=== PATIENT | male | born 1990 | race Caucasian/White ===

== ENCOUNTER 2020-03-10 10:02 | Emergency (ER) | payer SELFPAY ==
--- NOTE | ~2020-03-10 | CT_ITS ---
EXAMINATION: CT brain wo con DATE: 03/10/2020 11:20 INDICATION: Head injury. Loss of consciousness. TECHNIQUE: Computed tomography (CT) of the head was performed without intravenous contrast. The mA wa s adjusted according to patient size. Iterative reconstruction technique was employed. Exam dose: 60 5.33 mGy-cm total exam DLP. COMPARISON: None FINDINGS: No intracranial mass lesion or hemorrhage or cerebrovascular accident is evident. No midlin e shift or mass effect. Normal ventricular size. No subdural or epidural hematoma. No orbital mass lesion is detected. No fracture or bone destruction of the cranial vault. The mastoid air cells and included paranasal si nuses are normally developed and aerated. IMPRESSION: Negative Reviewed, dictated and finalized at [facility] Reviewed, dictated and finalized at [facility] IMPRESSION: Negative
[2020-03-10 10:02] VITALS: BP 122/82; PULSE 74; RESP 18; TEMP 37.1; O2SAT 97
--- NOTE | 2020-03-10 10:49 | ED.HEATRA ---
HPI - Head Injury General Chief complaint: Head Injury <MASOOD Duval Last Filed: 03/10/20 11:36> Stated complaint: HI <MASOOD Duval Last Filed: 03/10/20 11:36> Time Seen by Provider: 03/10/20 10:05 <MASOOD Duval Last Filed: 03/10/20 11:36> Source: patient <MASOOD Duval Last Filed: 03/10/20 11:36> Mode of arrival: EMS <MASOOD Duval Last Filed: 03/10/20 11:36> Limitations: other (patient does not remember incident well) <MASOOD Duval Last Filed: 03/10/20 11:36> History of Present Illness HPI Narrative: This is a 29 year old male that presents to the ER for head injury just prior to arrival. 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 Reports he did briefly lose consciousness. Report initially he had some blurry vision and ringing in his ears. Now reports a mild headache. Denies vomiting, weakness, or numbness. <MASOOD Duval Last Filed: 03/10/20 11:36> Related Data Home medications: Home Medications Medication Instructions Recorded Confirmed paroxetine HCl mg PO 03/10/20 <MASOOD Duval Last Filed: 03/10/20 11:36> Allergies/Adverse reactions: Allergies Allergy/AdvReac Type Severity Reaction Status Date / Time No Known Allergies Allergy Verified 03/10/20 10:46 <MASOOD Duval Last Filed: 03/10/20 11:36> Review of Systems Review of Systems: Narrative: CONSTITUTIONAL: Denies fever EYES: Reports visual changes GASTROINTESTINAL: Denies vomiting MUSCULOSKELETAL: Denies back pain, joint pain, or myalgia. NEUROLOGIC: Reports headache. Denies numbness, or weakness. PSYCHIATRIC: Denies anxiety or depression. <MASOOD Duval Last Filed: 03/10/20 11:36> All systems reviewed & are unremarkable except as noted in HPI and below <Merced Case PA-C - Last Filed: 03/10/20 11:36> PMFSH Past Medical History Medical History: Medical History (Updated 03/10/20 @ 11:31 by Merced Case PA-C) History of anxiety History of depression <Merced Case PA-C - Last Filed: 03/10/20 11:36> Exam Narrative: Exam Narrative: GENERAL: Well-appearing, well-nourished, and in no acute distress. HEAD: Normocephalic, atraumatic. EYES: PERRLA and EOMI. ENT: Nares clear, no rhinorrhea or epistaxis. Mucous membranes moist. Oropharynx without tonsillar hypertrophy exudate or other lesions. Bilateral TMs pearly lance non-bulging NECK: Supple. No adenopathy or masses. No midline spinal tenderness. Normal range of motion in the neck without pain CHEST: Clear to auscultation. No respiratory distress. No wheezes rales or rhonchi HEART: Regular rate and rhythm. No murmur heard. Normal peripheral pulses. ABDOMEN: Soft, nontender, nondistended, normal active bowel sounds. EXTREMITIES: Normal range of motion. No edema or obvious deformity. Strength equal in bilateral upper and lower extremities (5/5) SKIN: Warm, dry, no rash. NEURO: No focal deficits. Alert and oriented x3. Cranial nerves II through XII grossly intact. Normal [id number] PSYCH: Normal mood and affect <Merced Case PA-C - Last Filed: 03/10/20 11:36> Course Vital Signs Vital signs: Vital Signs Temperature 37.1 C 03/10/20 10:02 Pulse Rate 74 03/10/20 10:02 Respiratory Rate 18 03/10/20 10:02 Blood Pressure 122/82 03/10/20 10:02 Pulse Oximetry 97 03/10/20 10:02 Temperature 37.1 C 03/10/20 10:02 Pulse Rate 65 03/10/20 11:29 Respiratory Rate 16 03/10/20 11:29 Blood Pressure 134/90 03/10/20 11:29 Pulse Oximetry 98 03/10/20 11:29 <Merced Case PA-C - Last Filed: 03/10/20 11:36> Vital Signs Temperature 37.1 C 03/10/20 10:02 Pulse Rate 74 03/10/20 10:02 Respiratory Rate 18 03/10/20 10:02 Blood Pressure 122/82 03/10/20 10:02 Pulse Oximetry 97 03/10/20 10:02 Temperature 37.1 C 100
[2020-03-10 11:29] VITALS: BP 134/90; PULSE 65; RESP 16; O2SAT 98
--- NOTE | 2020-03-10 11:32 | PC.NURSE ---
Report to FATUMA Vasquez, to continue care.
== END 2020-03-10 12:22 | disposition home or self-care (01) ==
PROVIDERS: Emergency Provider Emergency Medicine
DX: S06.9X1A Unspecified intracranial injury with loss of consciousness of 30 minutes or less, initial encounter (principal); F41.9 Anxiety disorder, unspecified; F32.9 Major depressive disorder, single episode, unspecified
CPT/HCPCS: 70450; 99284; J0131

== ENCOUNTER 2020-05-12 16:25 | Outpatient (CLI) | payer BC, SELFPAY ==
[2020-05-12 17:04] LABS: SARS-CoV-2 Ag Negative (Negative)
== END 2020-05-12 16:26 | disposition home or self-care (01) ==
LOC: CHSLAB 16:30
PROVIDERS: PCP Internal Medicine; Visit Provider Internal Medicine
DX: Z20.828 Contact with and (suspected) exposure to other viral communicable diseases (principal)
CPT/HCPCS: 87426

== ENCOUNTER 2020-09-01 12:03 | Outpatient (CLI) | payer BC, SELFPAY ==
[2020-09-01 12:32] LABS: Basophils Absolute Auto 0.08 K/mm3 (0.00-0.10); Eosinophils Absolute Auto 0.23 K/mm3 (0.02-0.50); Eosinophils Percent Auto 2.8 % (1.0-6.0); Hematocrit 46.8 % (40.0-54.0); Hemoglobin 15.7 g/dL (14.0-18.0); Immature Granulocyte Absolute 0.09 K/mm3 (0.00-0.00); Immature Granulocyte Percent A 1.1 % (0.0-0.0); Lymphocytes Percent Auto 25.8 % (18.0-42.0); Mean Corpuscular HGB Conc 33.5 g/dL (32.0-36.0); Mean Corpuscular Hemoglobin 29.3 pg (27.0-31.0); Mean Corpuscular Volume 87.5 fL (78.0-102.0); Mean Platelet Volume 9.8 fl (8.7-11.0); Monocytes Absolute Auto 0.63 K/mm3 (0.10-0.90); Monocytes Percent Auto 7.7 % (2.0-11.0); Neutrophils Percent Auto 61.6 % (50.0-70.0); Platelet Count Result 237 K/mm3 (150-420); Red Blood Count 5.35 M/mm3 (4.70-6.10); Red Cell Distribution Width 12.6 % (11.6-14.4); White Blood Count 8.2 K/mm3 (4.8-10.8)
[2020-09-01 12:48] LABS: Alanine Aminotransferase 48 U/L (16-63); Alkaline Phosphatase 71 U/L (46-116); Amylase 68 U/L (25-115); Anion Gap 8 mmol/L (8-16); Aspartate Amino Transferase 18 U/L (15-37); Bilirubin,Total 0.4 mg/dL (0.00-1.00); Blood Urea Nitrogen 14 mg/dL (7-18); Calcium 8.8 mg/dL (8.5-10.1); Carbon Dioxide 28 mmol/L (21-32); Chloride 102 mmol/L (98-108); Estimated Glomerular Filt Rate > 60; Glucose 88 mg/dL (70-99); Lipase 242 U/L (73-393); Osmolality Calculated 285 mOsm/kg (285-295); Sodium 138 mmol/L (136-145); Total Protein 7.4 g/dL (6.4-8.2)
[2020-09-01 13:13] LABS: SARS-CoV-2 RNA PCR Negative (Negative)
[2020-09-01 13:23] LABS: Influenza A QL RT-PCR Negative (Negative); Influenza B QL RT-PCR Negative (Negative)
== END 2020-09-01 12:04 | disposition home or self-care (01) ==
LOC: CHSLAB 12:07
PROVIDERS: PCP Nurse Practitioner Family; Visit Provider Nurse Practitioner Family
DX: R11.2 Nausea with vomiting, unspecified (principal)
CPT/HCPCS: 80053; 82150; 83690; 85025; 87081; 87502; 87880; C9803; U0003; U0005

== ENCOUNTER 2021-01-09 14:49 | Emergency (ER) | payer SELFPAY ==
[2021-01-09 15:35] VITALS: BP 111/79; PULSE 77; RESP 16; TEMP 37; O2SAT 98
[2021-01-09 16:29] LABS: Add Urine Microscopic? NO; Appearance Urine Clear (Clear); Bilirubin Urine Negative (Negative); Blood Urine Negative (Negative); Color Urine Yellow (Yellow); Glucose Urine UA Negative (Negative); Ketones Urine Negative (Negative); Leukocyte Esterase Ur Negative (Negative); Nitrate Urine Negative (Negative); Protein Urine Negative (Negative); Specific Grav Ur >= 1.030 (1.010-1.020); Urobilinogen Urine 0.2 mg/dL (0.2-1.0); pH Urine 5.5 (5.0-8.0)
--- NOTE | 2021-01-09 16:43 | PC.NURSE ---
REPORT PROVIDED TO ONCOMING RN, FABY Levine
[2021-01-09 16:53] VITALS: BP 120/72; PULSE 70; RESP 17; O2SAT 97
--- NOTE | 2021-01-09 17:04 | ED.MALEGU ---
HPI - Male Genitourinary General Chief complaint: Urogenital-Male Stated complaint: STD tested Time Seen by Provider: 01/09/21 15:37 Source: patient and RN notes reviewed Mode of arrival: ambulatory Limitations: no limitations History of Present Illness Complaint: penile discharge and possible STD exposure Onset (ago): day(s) (2) Duration: constant Location: penis Severity: mild Quality: other (no acute pain) Relieving factors: none Exacerbating factors: none Context: known STD exposure Associated symptoms: Reports denies other symptoms Related Data Sexually active: Yes Allergies Allergy/AdvReac Type Severity Reaction Status Date / Time No Known Allergies Allergy Verified 03/10/20 10:46 Review of Systems Review of Systems: All systems reviewed & are unremarkable except as noted in HPI and below Constitutional: Constitutional: Reports as per HPI and Reports no additional constitutional complaints Eyes: Eyes: Reports as per HPI and Reports no additional eye complaints ENT: Reports system reviewed and no additional complaints, except as documented and Reports as per HPI Cardiovascular: Cardiovascular: Reports as per HPI and Reports no additional cardiovascular complaints Respiratory: Respiratory: Reports as per HPI and Reports no additional respiratory complaints Gastrointestinal: Gastrointestinal: Reports as per HPI and Reports no additional gastrointestinal complaints Genitourinary: Genitourinary: Reports no additional male genitourinary complaints and Reports as per HPI Musculoskeletal: Musculoskeletal: Reports no additional musculoskeletal complaints and Reports as per HPI Integumentary/Breasts: Skin/Breast: Reports system reviewed and no additional complaints, except as docu and Reports as per HPI Neurologic: Reports system reviewed and no additional complaints, except as documented and Reports as per HPI Psychiatric: Psychiatric: Reports no additional psychiatric complaints and Reports as per HPI Endocrine: Endocrine: Reports no additional endocrine complaints and Reports as per HPI Hematologic/Lymphatic: Hematologic/Lymphatic: Reports no additional hematologic/lymphatic complaints and Reports as per HPI Allergic/Immunologic: Allergic/Immunologic: Reports no additional allergic/immunologic complaints and Reports as per HPI PMF Past Medical History Medical History History of anxiety History of depression Exam Const: General: healthy appearing, no acute distress and alert Orientation/consciousness: oriented to person, oriented to place and oriented to time Limitations: no limitations HENMT: Head: normal to inspection Ears: TM's normal bilaterally General nose exam: Normal external nose present and Normal nares present Mouth: Yes lip normal and Yes moist mucous membranes Teeth and gingiva: dentition normal Throat: posterior oropharynx normal Eyes: Conjunctivae: conjunctivae normal Pupils: Equal, round and reactive pupils present EOM: EOMs intact bilaterally Neck: Neck: normal visual inspection and no lymphadenopathy Chest: Chest palpation & inspection: normal inspection of the chest Resp: Effort & Inspection: normal respiratory effort Auscultation: clear to auscultation bilaterally Cardio: Rate: regular rate Rhythm: regular rhythm GI: GI Palp: Yes Soft to palpation Percussion: Yes normal to percussion Auscultation: normal bowel sounds : General: Yes bladder normal to palpation and Yes no CVA tenderness Male General Exam: Yes normal external exam Testes: Testes normal Back/Spine/Pelvis: Back: no CVA tenderness Skin: General skin exam: normal color Rashes: no rashes Neuro: General: patient oriented x3, moves all extremities and no focal motor deficits Cranial nerves: Yes CN's II-XII intact bilaterally and Yes Nystagmus not present Extrem: General: normal to inspection and no pedal edema Psych: Appearance: grossly no
[2021-01-09 17:10] VITALS: BP 120/88; PULSE 72; RESP 16; TEMP 36.6; O2SAT 98
[2021-01-09 17:13] LABS: HIV 1 P24 AG Negative (Negative); HIV 1/2 AB Negative (Negative)
[2021-01-11 22:31] LABS: Treponema pallidum Ab FTA ABS Nonreactive (Nonreactive)
[2021-01-12 10:51] LABS: RPR Screen Non-Reactive (Non-Reactive)
== END 2021-01-09 17:12 | disposition home or self-care (01) ==
PROVIDERS: Emergency Provider Emergency Medicine; PCP Nurse Practitioner Family
DX: N34.2 Other urethritis (principal)
CPT/HCPCS: 36415; 81003; 86592; 86703; 86780; 87491; 87591; 99283

== ENCOUNTER 2022-04-05 18:25 | Emergency (ER) | payer SELFPAY ==
[2022-04-05 18:38] VITALS: BP 120/74; PULSE 65; RESP 20; TEMP 36.2; O2SAT 100
--- NOTE | 2022-04-05 19:30 | ED.URI ---
HPI - URI/Sore Throat General Chief Complaint: Upper Respiratory Infection Stated Complaint: cough with chest pain Time Seen by Provider: 04/05/22 19:30 Source: patient, RN notes reviewed and old records reviewed Mode of arrival: ambulatory Limitations: no limitations History of Present Illness HPI Narrative: 31-year-old male presents to [facility] with complaints of dry cough and sore throat for the past 3-4 days. Patient reports that cough is harsh and he was unable to sleep last night due to cough. He reports no fevers, chills or sweats, admits to some nasal congestion and drainage. Patient denies any shortness of breath, no acute headache pain or any body aches, states has had Covid vaccination. Patient states that he has taken some ORC cough syrup without improvement. MD elicited complaint: fever and cough Onset (ago): day(s) (3-4 days) Pain scale (0-10): 3 Treatments prior to arrival: other (cough syrup) Related Data Allergies Allergy/AdvReac Type Severity Reaction Status Date / Time No Known Allergies Allergy Verified 04/05/22 20:06 Review of Systems Review of Systems: CONSTITUTIONAL: Denies malaise, chills, sweats, or fever. EYES: Denies visual changes, redness, or discharge. ENT: Reports rhinorrhea, congestion, sinus pain, no otalgia positive sore throat. CARDIOVASCULAR: Denies chest pain, palpitations, or edema. RESPIRATORY: Reports cough.? Denies dyspnea. GASTROINTESTINAL: Denies abdominal pain, nausea, vomiting, diarrhea SKIN: Denies rash or itching. MUSCULOSKELETAL: Denies myalgia. NEUROLOGIC: Denies headache. All systems reviewed & are unremarkable except as noted in HPI and below PMFSH Past Medical History Medical History (Updated 04/06/22 @ 00:00 by Background Daemon) History of anxiety History of depression Surgical History Surgical History (Updated 04/13/22 @ 00:03 by Tara Whaley NP) History of surgery on arm ulnar nerve release left arm Social History Social History (Updated 04/12/22 @ 23:55 by Tara Whaley NP) Smoking status: Never smoker Alcohol intake: current Alcohol use details: social Substance use type: does not use Living arrangements: with family Gender identity (if verbalized by the patient): Male Comments At time of signature, agree with nursing past medical, surgical, social and family history. There is no relevant family history pertinent to the presenting complaint Exam Narrative: GENERAL: Well-appearing, well-nourished, and in no acute distress. HEAD: Normocephalic EYES: PERRLA, conjunctivae clear ENT: Nares clear, turbinates edematous and erythematous, clear discharge. Mucous membranes moist. TM pearly lance with dull light reflex bilaterally; no tragal tenderness. Oropharynx erythematous without lesions. Tonsils enlarged and with white exudate, no drooling, no hoarseness, no trismus, uvula midline. NECK: Supple. lymphadenopathy CHEST: Clear to auscultation, breath sounds equal. No wheezing, rhonchi, rales, or stridor. No respiratory distress, speaks in full sentences.harsh cough, SAO2 100% on room air HEART: Regular rate and rhythm. No murmur heard. SKIN: Warm, dry, no rash. NEURO: Alert and oriented x3. PSYCH: Normal mood and affect Course Course Emergency Course: Patient is aware of diagnosis, understands and agrees to treatment plan.? Anticipatory guidance given.? Patient agrees to follow-up as directed and is aware of reasons to seek care at the emergency department. Portions of this record may have been created with voice recognition software Level of Care: Express Care Visit Vital Signs Vital signs: Vital Signs Temperature 36.2 C L 04/05/22 18:38 Pulse Rate 65 04/05/22 18:38 Respiratory Rate 20 04/05/22 18:38 Blood Pressure 120/74 04/05/22 18:38 Pulse Oximetry 100 04/05/22 18:38 Oxygen Delivery Room Air 04/05/22 18:38 Temperature 36.2 C L 04/05/22 18:38 Pulse Rate 65
== END 2022-04-05 20:01 | disposition home or self-care (01) ==
PROVIDERS: Emergency Provider Registered Nurse; PCP Internal Medicine
DX: B00.2 Herpesviral gingivostomatitis and pharyngotonsillitis (principal)
CPT/HCPCS: 87081; 87804; 87880; 99213; G0463

== ENCOUNTER 2022-05-14 09:29 | Emergency (ER) | payer SELFPAY ==
--- NOTE | 2022-05-14 09:32 | ED.URI ---
HPI - URI/Sore Throat General Stated Complaint: Flu symptoms Time Seen by Provider: 05/14/22 10:11 Source: patient and RN notes reviewed Mode of arrival: ambulatory Limitations: no limitations History of Present Illness HPI Narrative: 31-year-old male presents concern for 2 week history flu-like symptoms. Reports symptoms have resolved, he has not had a fever in the last 3 days. Reports his only remaining symptom is lingering mild cough. Reports he is ready to go back to work after time off due to his illness but needs a work note. MD elicited complaint: cough Related Data Home Medications Medication Instructions Recorded Confirmed No Home Medications 05/14/22 05/14/22 Allergies Allergy/AdvReac Type Severity Reaction Status Date / Time No Known Allergies Allergy Verified 05/14/22 10:03 Review of Systems Review of Systems: CONSTITUTIONAL: Denies malaise, chills, sweats, or fever. EYES: Denies visual changes, redness, or discharge. ENT: Denies rhinorrhea, congestion, sinus pain, otalgia and sore throat. CARDIOVASCULAR: Denies chest pain, palpitations, or edema. RESPIRATORY: Reports mild cough. Denies dyspnea. GASTROINTESTINAL: Denies abdominal pain, nausea, vomiting, diarrhea SKIN: Denies rash or itching. MUSCULOSKELETAL: Denies myalgia. NEUROLOGIC: Denies headache. All systems reviewed & are unremarkable except as noted in HPI and below PMFSH Past Medical History Medical History (Updated 05/14/22 @ 10:16 by Ana Yanes NP) History of anxiety History of depression Surgical History Surgical History (Updated 04/13/22 @ 00:03 by Tara Whaley NP) History of surgery on arm ulnar nerve release left arm Social History Social History (Updated 04/12/22 @ 23:55 by Tara Whaley NP) Smoking status: Never smoker Alcohol intake: current Alcohol use details: social Substance use type: does not use Gender identity (if verbalized by the patient): Male Comments At time of signature, agree with nursing past medical, surgical, social and family history. There is no relevant family history pertinent to the presenting complaint Exam Narrative: GENERAL: Well-appearing, well-nourished, and in no acute distress. HEAD: Normocephalic EYES: PERRLA, conjunctivae clear ENT: Nares clear, turbinates edematous and erythematous, clear discharge. Mucous membranes moist. TM pearly lance with sharp light reflex bilaterally; no tragal tenderness. Oropharynx not erythematous without lesions. Tonsils not enlarged and without exudate, no drooling, no hoarseness, no trismus, uvula midline. NECK: Supple. No lymphadenopathy CHEST: Clear to auscultation, breath sounds equal. No wheezing, rhonchi, rales, or stridor. No respiratory distress, speaks in full sentences. HEART: Regular rate and rhythm. No murmur heard. SKIN: Warm, dry, no rash. NEURO: Alert and oriented x3. PSYCH: Normal mood and affect Course Course Emergency Course: Patient is aware of diagnosis, understands and agrees to treatment plan. Anticipatory guidance given. Patient agrees to follow-up as directed and is aware of reasons to seek care at the emergency department. Portions of this record may have been created with voice recognition software Level of Care: Express Care Visit Vital Signs Vital signs: Reviewed. MDM - URI/Sore Throat MDM Narrative Medical decision making narrative: Differential diagnosis considered: Tillman virus, strep pharyngitis, allergic rhinitis, upper respiratory tract infection, sinusitis, rhinosinusitis, nasopharyngitis. viral pharyngitis, otitis media, otitis externa, pneumonia, bronchitis, viral cough syndrome, viral syndrome, and influenza. Exam findings show no acute concerns or changes; patient is non-toxic appearing and is in no distress. Patient is appropriate for outpatient treatment and follow-up. Lab Data Attestation: I reviewed the patient's lab results. Critical Care Time Critical Care Time Critic
[2022-05-14 09:37] VITALS: BP 121/69; PULSE 80; RESP 14; TEMP 37; O2SAT 100
== END 2022-05-14 10:19 | disposition home or self-care (01) ==
PROVIDERS: Emergency Provider Nurse Practitioner; PCP Internal Medicine
DX: B34.9 Viral infection, unspecified (principal)
CPT/HCPCS: 99211; G0463

== ENCOUNTER 2022-05-20 13:58 | Emergency (ER) | payer SELFPAY | END 2022-05-20 16:02 | disposition left against medical advice (07) | LOC: EXPBETH 14:00 | PROVIDERS: Emergency Provider Registered Nurse; PCP Internal Medicine | DX: Z53.21 Procedure and treatment not carried out due to patient leaving prior to being seen by health care provider (principal) | CPT/HCPCS: 99199 ==

== ENCOUNTER 2022-05-20 19:25 | Emergency (ER) | payer SELFPAY ==
[2022-05-20 19:52] VITALS: BP 121/75; PULSE 79; RESP 20; TEMP 37.4; O2SAT 100
--- NOTE | 2022-05-20 20:31 | ED.NAVMDI ---
HPI - Nausea/Vomiting/Diarrhea General Chief complaint: Nausea/Vomiting/Diarrhea Stated complaint: Vomiting/Fever Time Seen by Provider: 05/20/22 20:30 Source: patient, RN notes reviewed and old records reviewed Mode of arrival: ambulatory Limitations: no limitations History of Present Illness HPI Narrative: 31 year old male who presents to [facility] care with complaints of lingering cough, nausea and vomiting and fever Tuesday was sent home from work.Patient reports that he had the flu about 2 weeks ago and cough has lingered with sinus congestion decreased with some low grade fevers. Patient has taken DayQuil and NyQuil and also Ibuprofen MD elicited complaint: nausea, vomiting and other (cough ) Treatment prior to arrival: NSAIDs and other (DayQul and NyQuil) Related Data Allergies Allergy/AdvReac Type Severity Reaction Status Date / Time No Known Allergies Allergy Verified 05/20/22 19:55 Review of Systems Review of Systems: CONSTITUTIONAL: Reports no malaise, chills, sweats, positive for low grade fever. EYES: Denies visual changes, redness, or discharge. ENT: Reports rhinorrhea, congestion, denies sinus pain, otalgia and sore throat. CARDIOVASCULAR: Denies chest pain, palpitations, or edema. RESPIRATORY: Reports lingering cough.? Denies dyspnea. GASTROINTESTINAL: Denies abdominal pain, positive for some nausea, vomiting, denies diarrhea SKIN: Denies rash or itching. MUSCULOSKELETAL: Denies myalgia. NEUROLOGIC: Denies headache. All systems reviewed & are unremarkable except as noted in HPI and below PMFSH Past Medical History Medical History (Updated 05/21/22 @ 00:00 by Kathy Swift) History of anxiety History of depression Surgical History Surgical History (Updated 04/13/22 @ 00:03 by Tara Whaley NP) History of surgery on arm ulnar nerve release left arm Social History Social History (Updated 04/12/22 @ 23:55 by Tara Whaley NP) Smoking status: Never smoker Alcohol intake: current Alcohol use details: social Substance use type: does not use Gender identity (if verbalized by the patient): Male Comments At time of signature, agree with nursing past medical, surgical, social and family history. There is no relevant family history pertinent to the presenting complaint Exam Narrative: GENERAL: Well-appearing, well-nourished, and in no acute distress. HEAD: Normocephalic EYES: PERRLA, conjunctivae clear ENT: Nares clear, turbinates edematous and erythematous, clear discharge. Mucous membranes moist. TM pearly lance with dull light reflex bilaterally; no tragal tenderness. Oropharynx erythematous without lesions. Tonsils not enlarged and without exudate, no drooling, no hoarseness, no trismus, uvula midline.post nasal drainage. NECK: Supple. No lymphadenopathy CHEST: Clear to auscultation, breath sounds equal. No wheezing, rhonchi, rales, or stridor. No respiratory distress, speaks in full sentences.cough SAO2 100% on room air HEART: Regular rate and rhythm. No murmur heard. SKIN: Warm, dry, no rash. NEURO: Alert and oriented x3. PSYCH: Normal mood and affect Course Course Emergency Course: Patient is aware of diagnosis, understands and agrees to treatment plan.? Anticipatory guidance given.? Patient agrees to follow-up as directed and is aware of reasons to seek care at the emergency department. Portions of this record may have been created with voice recognition software Level of Care: Express Care Visit Vital Signs Vital signs: Vital Signs Temperature 37.4 C 05/20/22 19:52 Pulse Rate 79 05/20/22 19:52 Respiratory Rate 20 05/20/22 19:52 Blood Pressure 121/75 05/20/22 19:52 Pulse Oximetry 100 05/20/22 19:52 Oxygen Delivery Room Air 05/20/22 19:52 Temperature 37.4 C 05/20/22 19:52 Pulse Rate 79 05/20/22 19:52 Respiratory Rate 20 05/20/22 19:52 Blood Pressure 121/75 05/20/22 19:52 Pulse Oximetry 100 12
--- NOTE | 2022-05-20 20:41 | ED_ITS ---
HPI - General Adult General Chief complaint: Nausea/Vomiting/Diarrhea Stated complaint: Vomiting/Fever Related Data Home Medications Medication Instructions Recorded Confirmed No Home Medications 05/14/22 05/20/22 Allergies Allergy/AdvReac Type Severity Reaction Status Date / Time No Known Allergies Allergy Verified 05/20/22 19:55 [facility] Past Medical History Medical History (Updated 05/20/22 @ 20:48 by Tara Whaley NP) History of anxiety History of depression Surgical History Surgical History (Updated 04/13/22 @ 00:03 by Tara Whaley NP) History of surgery on arm ulnar nerve release left arm Social History Social History (Updated 04/12/22 @ 23:55 by Tara Whaley NP) Smoking status: Never smoker Alcohol intake: current Alcohol use details: social Substance use type: does not use Gender identity (if verbalized by the patient): Male Course Vital Signs Vital signs: Vital Signs Temperature 37.4 C 05/20/22 19:52 Pulse Rate 79 05/20/22 19:52 Respiratory Rate 20 05/20/22 19:52 Blood Pressure 121/75 05/20/22 19:52 Pulse Oximetry 100 05/20/22 19:52 Oxygen Delivery Room Air 05/20/22 19:52 Temperature 37.4 C 05/20/22 19:52 Pulse Rate 79 05/20/22 19:52 Respiratory Rate 20 05/20/22 19:52 Blood Pressure 121/75 05/20/22 19:52 Pulse Oximetry 100 05/20/22 19:52 Oxygen Delivery Room Air 05/20/22 19:52 Medical Decision Making Vital Signs Vital Signs: Vital Signs Temperature 37.4 C 05/20/22 19:52 Pulse Rate 79 05/20/22 19:52 Respiratory Rate 20 05/20/22 19:52 Blood Pressure 121/75 05/20/22 19:52 Pulse Oximetry 100 05/20/22 19:52 Oxygen Delivery Room Air 05/20/22 19:52 Temperature 37.4 C 05/20/22 19:52 Pulse Rate 79 05/20/22 19:52 Respiratory Rate 20 05/20/22 19:52 Blood Pressure 121/75 05/20/22 19:52 Pulse Oximetry 100 05/20/22 19:52 Oxygen Delivery Room Air 05/20/22 19:52 Discharge Plan Discharge Clinical Impression: Upper respiratory infection with cough and congestion Prescriptions: No Action No Home Medications Follow-up/Referrals: PHYSICIAN,GLOBAL [employer]AF[employer]Y OFFICER [Primary Care Provider] -
== END 2022-05-20 20:59 | disposition home or self-care (01) ==
PROVIDERS: Emergency Provider Registered Nurse
DX: J06.9 Acute upper respiratory infection, unspecified (principal); R05.9 Cough, unspecified; R11.0 Nausea
CPT/HCPCS: 99213; G0463

== ENCOUNTER 2022-12-27 18:31 | Emergency (ER) | payer OTHER, SELFPAY ==
[2022-12-27 18:40] VITALS: BP 123/62; PULSE 82; RESP 20; TEMP 36.8; O2SAT 100
--- NOTE | 2022-12-27 18:47 | ED.LOWEXIN ---
HPI - Extremity Injury (Lower) General Chief Complaint: Extremity Injury, Lower Stated Complaint: Left Ankle Injury History of Present Illness HPI Narrative: 32-year-old male presents to the [facility] with his significant other and crutches complaining of a left ankle injury. 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 Patient denies any loss of consciousness or hitting his head. Patient is complaining of left ankle pain and came in for further evaluation. Patient reports some numbness and tingling to his left foot. Patient is able to wiggle his toes and does feel pressure when palpating his toes distal to the injury. Patient's left foot is warm with capillary refill less than 3 seconds. Patient states most of his pain is in the left dorsal foot, anterior, lateral, and medial side of his left ankle. Patient states the pain is nonradiating. Patient took 600 mg ibuprofen prior to arrival. Related Data Home Medications Medication Instructions Recorded Confirmed escitalopram oxalate 10 mg tablet 10 mg PO DAILY 12/27/22 12/27/22 (Lexapro) Allergies Allergy/AdvReac Type Severity Reaction Status Date / Time No Known Allergies Allergy Verified 12/27/22 18:53 Review of Systems Review of Systems: CONSTITUTIONAL: Denies fever, chills, or sweats. EYES: Denies visual changes, redness, or discharge. ENT: Denies otalgia and sore throat CARDIOVASCULAR: Denies chest pain, palpitations, or edema. RESPIRATORY: Denies cough or dyspnea. GASTROINTESTINAL: Denies abdominal pain, nausea, vomiting, or diarrhea. GENITOURINARY: Denies dysuria or hematuria. SKIN: Denies rash or itching. MUSCULOSKELETAL: Denies back pain. Reports left ankle injury. NEUROLOGIC: Denies headache, numbness, or weakness. Pertinent positives per HPI. [facility] Past Medical History Medical History (Updated 12/27/22 @ 19:01 by Siri Gottlieb APRN) History of anxiety History of depression Surgical History Surgical History (Updated 04/13/22 @ 00:03 by Tara Whaley NP) History of surgery on arm ulnar nerve release left arm Social History Social History (Updated 04/12/22 @ 23:55 by Tara Whaley NP) Smoking status: Never smoker Alcohol intake: current Alcohol use details: social Substance use type: does not use Living arrangements: with family Gender identity (if verbalized by the patient): Male Comments At the time of my signature, I reviewed and agree with the nursing past medical, surgical, social, and family history. There is no relevant family history pertinent to the patient complaint. Exam Narrative: GENERAL: This is a well-nourished, well-developed patient, in no apparent distress. HEAD: normocephalic, atraumatic. EYES: Sclera clear/white. Vision is grossly intact. EARS: External ears normal, auditory canals clear and without drainage, TMs normal without perforation. Hearing grossly intact. NOSE: External nose normal with no obvious nasal discharge, nares without redness, no rhinorrhea. THROAT: Mucous membranes moist, posterior pharynx clear. NECK: Neck supple, non-tender without lymphadenopathy, masses or thyromegaly. CARDIOVASCULAR: Regular rate and rhythm without murmurs, gallops, or rubs. RESPIRATORY: Clear to auscultation. Breath sounds equal bilaterally. No wheezes, rales, or rhonchi. GASTROINTESTINAL: Abdomen soft, non-tender, nondistended. Bowel sounds are active. No hepato-splenomegaly, or palpable masses. No guarding. SKIN: warm, intact with no suspicious lesions or rash, good texture and turgor. NEURO: awake, alert, and oriented to person, place and time. There were no obvious focal neurologic abnormalities. EXTREMITIES: There is swelling to the left ankle with point tenderness to the left dorsal foot, anterior, lateral, and medial side of the patient's left
== END 2022-12-27 19:04 | disposition short-term general hospital (02) ==
PROVIDERS: Emergency Provider Nurse Practitioner Family; PCP Internal Medicine
DX: S99.912A Unspecified injury of left ankle, initial encounter (principal); W18.09XA Striking against other object with subsequent fall, initial encounter; Y99.0 Civilian activity done for income or pay; F41.9 Anxiety disorder, unspecified; F32.A Depression, unspecified
CPT/HCPCS: 99212; G0463

== ENCOUNTER 2022-12-27 19:30 | Emergency (ER) | payer OTHER, SELFPAY ==
--- NOTE | ~2022-12-27 | XR_ITS ---
Left ankle Technique: AP, oblique, and lateral views were obtained. Clinical History: Pain Findings: No acute fracture or dislocation is seen. Osseous alignment is anatomic. Ankle mortise and other visualized joint spaces are preserved. There is probable mild lateral soft tissue swelling. Impression: No fracture or dislocation. Mild lateral soft tissue swelling. [place] [facility] [place]ression: No fracture or dislocation. Mild lateral soft tissue swelling.
[2022-12-27 19:31] VITALS: BP 114/68; PULSE 69; RESP 16; TEMP 36.7; O2SAT 99
--- NOTE | 2022-12-27 20:45 | ED.LOWEXIN ---
HPI - Extremity Injury (Lower) General Chief Complaint: Extremity Injury, Lower Stated Complaint: left ankle injury Time Seen by Provider: 12/27/22 19:57 History of Present Illness HPI Narrative: This is a 32-year-old male, with past medical history of depression, referred from urgent care for imaging of the left ankle. The patient states he was stepping down from a truck, when he rolled his left ankle. He complains of 8/10 left ankle pain described as dull and intermittently sharp without radiation. Related Data Home Medications Medication Instructions Recorded Confirmed escitalopram oxalate 10 mg tablet 10 mg PO DAILY 12/27/22 12/27/22 (Lexapro) Allergies Allergy/AdvReac Type Severity Reaction Status Date / Time No Known Allergies Allergy Verified 12/27/22 19:30 Review of Systems Review of Systems: CONSTITUTIONAL: Denies fever, chills, or sweats. CARDIOVASCULAR: Denies chest pain, palpitations, or edema. RESPIRATORY: Denies cough or dyspnea. GASTROINTESTINAL: Denies abdominal pain, nausea, vomiting, or diarrhea. MUSCULOSKELETAL: Left ankle pain denies back pain, or myalgia. NEUROLOGIC: Denies headache, numbness, dizziness, or weakness. PSYCHIATRIC: Denies anxiety or depression. [facility] Past Medical History Medical History History of anxiety History of depression Surgical History Surgical History History of surgery on arm ulnar nerve release left arm Social History Social History Smoking status: Never smoker Alcohol intake: current Alcohol use details: social Substance use type: does not use Living arrangements: with family Gender identity (if verbalized by the patient): Male Course Course Emergency Course: 20:54 -x-ray not concerning for fracture or dislocation. Will discharge with recommendation for RICE therapy and pain management with NSAIDs. Discussed return and emergency precautions including signs/symptoms of neurovascular compromise and septic arthritis. The patient voiced understanding and is comfortable with the plan. All questions answered to his satisfaction. Vital Signs Vital signs: Vital Signs Temperature 98.1 F 12/27/22 19:31 Pulse Rate 69 12/27/22 19:31 Respiratory Rate 16 12/27/22 19:31 Blood Pressure 114/68 12/27/22 19:31 Pulse Oximetry 99 12/27/22 19:31 Oxygen Delivery Room Air 12/27/22 19:31 Temperature 98.1 F 12/27/22 19:31 Pulse Rate 69 12/27/22 19:31 Respiratory Rate 16 12/27/22 19:31 Blood Pressure 114/68 12/27/22 19:31 Pulse Oximetry 99 12/27/22 19:31 Oxygen Delivery Room Air 12/27/22 19:31 MDM - Extremity Injury (Lower) MDM Narrative Medical decision making narrative: Plan: Imaging, pain control, reassess Differential Diagnosis Differential diagnosis: Likely ankle sprain and strain, fracture of toe, ankle fracture and other (Dislocation, other) Discharge Plan Discharge Clinical Impression: Ankle sprain and strain, Acute left ankle pain Patient Disposition: Home, Self-Care Condition: Stable Instructions: Antibiotic Form, Ankle Sprain (ED) Additional Instructions: You were seen in the emergency department. X-rays not concerning for fracture or dislocation. I recommend rest, ice, compression and elevation and follow-up with a primary care doctor. I recommend 1 g of Tylenol every 8 hours as needed for pain you may add ibuprofen to this. If you develop blue or cold toes, fevers with severe pain, or if you have other emergent concerns for life, limb, or eyesight, return to the emergency department. Patient Language: Croatian Prescriptions: No Action escitalopram oxalate [Lexapro] 10 mg Tablet 10 mg PO DAILY Follow-up/Referrals: Jostin Avendano MD [Primary Care Provider] - 1 Week Time of Disposition: 20:58
[2022-12-27] MEDS: ACETAMINOPHEN 500 MG TABLET 1000 MG PO (20:54)
== END 2022-12-27 21:07 | disposition home or self-care (01) ==
PROVIDERS: Emergency Provider Preventive Medicine Aerospace Medicine; PCP Internal Medicine
DX: S96.912A Strain of unspecified muscle and tendon at ankle and foot level, left foot, initial encounter (principal); S93.402A Sprain of unspecified ligament of left ankle, initial encounter; F41.9 Anxiety disorder, unspecified; F32.A Depression, unspecified; X50.9XXA Other and unspecified overexertion or strenuous movements or postures, initial encounter
CPT/HCPCS: 73610; 99283; A9270

== ENCOUNTER 2022-12-30 15:15 | Outpatient (CLI) | payer OTHER, SELFPAY ==
--- NOTE | ~2022-12-30 | XR_ITS ---
XR ankle LT min 3V DATE: 12/30/2022 15:38 INDICATION: Left lateral ankle pain and swelling after injury TECHNIQUE: 3 views COMPARISON: 12/27/2022 left ankle FINDINGS: There is moderate lateral soft tissue swelling. There is an approximately 2.4 mm linear less than 1 mm thick calcific or bony density at the inferior aspect of the lateral malleolus, possibly a very small cortical avulsion fracture. Otherwise no fracture or dislocation of the ankle or disruption of the ankle mortise. IMPRESSION: Very small cortical avulsion fracture from the inferior tip of the lateral malleolus is s uggested; overlie moderate soft tissue swelling Reviewed, dictated and finalized at location [facility]. IMPRESSION: Very small cortical avulsion fracture from the inferior tip of the lateral malleolus is suggested; overlie moderate soft tissue swelling
== END 2022-12-30 15:16 | disposition home or self-care (01) ==
LOC: CHSIMG 15:18
PROVIDERS: PCP Internal Medicine; Visit Provider Nurse Practitioner Family
DX: M25.572 Pain in left ankle and joints of left foot (principal); M79.89 Other specified soft tissue disorders
CPT/HCPCS: 73610

== ENCOUNTER 2023-02-28 08:52 | Emergency (ER) | payer BC, SELFPAY ==
[2023-02-28 09:10] VITALS: BP 110/65; PULSE 71; RESP 20; TEMP 37; O2SAT 100
--- NOTE | 2023-02-28 09:55 | ED.URI ---
HPI - URI/Sore Throat General Chief Complaint: Upper Respiratory Infection Stated Complaint: cough causing sob Time Seen by Provider: 02/28/23 09:55 Source: patient, RN notes reviewed and old records reviewed Mode of arrival: ambulatory Limitations: no limitations History of Present Illness HPI Narrative: 32-year-old male presents to the [facility] with complaints of a cough x 3 weeks. Patient states that started as a dry cough. Has started as a dry cough, has progressed to a wet productive cough over the last week. Reports intermittent shortness of breath while coughing. No consistent chest pain. Denies nausea vomiting diarrhea or fevers. Has tried [id number] sinus medication and Mucinex. Onset (ago): week(s) (3) Related Data Allergies Allergy/AdvReac Type Severity Reaction Status Date / Time No Known Allergies Allergy Verified 02/28/23 09:33 Review of Systems Review of Systems: All systems reviewed & are unremarkable except as noted in HPI and below Constitutional: Constitutional: Reports no additional constitutional complaints Eyes: Eyes: Reports no additional eye complaints ENT: Reports system reviewed and no additional complaints, except as documented Cardiovascular: Cardiovascular: Reports no additional cardiovascular complaints, Denies chest pain and Denies dyspnea Respiratory: Respiratory: Reports as per HPI, Reports chest congestion, Reports cough and Reports dyspnea Gastrointestinal: Gastrointestinal: Reports no additional gastrointestinal complaints, Denies abdominal pain, Denies nausea and Denies vomiting Musculoskeletal: Musculoskeletal: Reports no additional musculoskeletal complaints Integumentary/Breasts: Skin/Breast: Reports system reviewed and no additional complaints, except as docu Neurologic: Reports system reviewed and no additional complaints, except as documented Psychiatric: Psychiatric: Reports no additional psychiatric complaints Allergic/Immunologic: Allergic/Immunologic: Reports no additional allergic/immunologic complaints [facility] Past Medical History Medical History (Updated 02/28/23 @ 10:03 by Ana Blanco APRN) Closed left ankle fracture History of anxiety History of depression Surgical History Surgical History History of surgery on arm ulnar nerve release left arm Social History Social History Smoking status: Never smoker Alcohol intake: current Alcohol use details: social Substance use type: does not use Living arrangements: with family Gender identity (if verbalized by the patient): Male Comments At the time of my signature, I reviewed and agree with the nursing past medical, surgical, social, and family history. There is no relevant family history pertinent to the patient complaint. Exam Const: General: cooperative, healthy appearing, comfortable, no acute distress, well developed, alert and well nourished Nutritional Appearance: well nourished Orientation/consciousness: patient oriented x3 Limitations: no limitations HENMT: Head: normal to inspection Ears: hearing grossly normal bilaterally and external ears normal Face/Nose/Sinus: Normal external nose present, Normal nares present, Normal nasal mucous membranes and turbinates present, normal facial exam and face symmetric Face and sinus: normal facial exam and face symmetric Mouth: Yes Normal oral and palatal mucosa present, Yes lip normal and Yes moist mucous membranes Throat: posterior oropharynx normal, tonsils normal, uvula midline and postnasal drainage Eyes: General: appearance normal, both eyes and all related structures Alignment and Position: alignment normal Periorbital: periorbital findings normal Pupils: Equal, round and reactive pupils present EOM: EOMs intact bilaterally Neck: Neck: normal visual inspection, full ROM, no lymphadenopathy and no meningeal signs
== END 2023-02-28 10:08 | disposition home or self-care (01) ==
PROVIDERS: Emergency Provider Nurse Practitioner; PCP Internal Medicine
DX: J40 Bronchitis, not specified as acute or chronic (principal)
CPT/HCPCS: 99213; G0463

== ENCOUNTER 2023-05-26 17:20 | Emergency (ER) | payer SELFPAY ==
[2023-05-26 17:27] VITALS: BP 138/70; PULSE 89; RESP 20; TEMP 37.3; O2SAT 99
--- NOTE | 2023-05-26 17:29 | ED.URI ---
HPI - URI/Sore Throat General Chief Complaint: Upper Respiratory Infection Stated Complaint: cough/trouble breathing Time Seen by Provider: 05/26/23 17:31 Source: patient Mode of arrival: ambulatory Limitations: no limitations History of Present Illness HPI Narrative: 32-year-old male presented for complaint of cough and shortness of breath. onset today. States he feels like he cannot get full deep breath and can hear wheezing. Taking mucinex. Denies any other symptoms. Related Data Allergies Allergy/AdvReac Type Severity Reaction Status Date / Time No Known Allergies Allergy Verified 05/26/23 17:30 Review of Systems Review of Systems: CONSTITUTIONAL: Denies body aches, fever, chills, or sweats. EYES: Denies visual changes, redness, or discharge. ENT: Denies rhinorrhea, congestion, sore throat, or otalgia. CARDIOVASCULAR: Denies chest pain, palpitations, or edema. RESPIRATORY: Reports cough, sob, wheezing. GASTROINTESTINAL: Denies abdominal pain, nausea, vomiting, or diarrhea. SKIN: Denies rash, itching, or wounds. MUSCULOSKELETAL: Denies back pain, joint pain, or myalgia. NEUROLOGIC: Denies headache, numbness, tingling, or weakness. All systems reviewed & are unremarkable except as noted in HPI and below PMFSH Past Medical History Medical History Closed left ankle fracture History of anxiety History of depression Surgical History Surgical History History of surgery on arm ulnar nerve release left arm Social History Social History Smoking status: Never smoker Alcohol intake: current Alcohol use details: social Substance use type: does not use Living arrangements: with family Gender identity (if verbalized by the patient): Male Comments At time of signature, I have reviewed and agree with nursing past medical, surgical, social and family history unless otherwise noted. Please see nursing chart for further information. There is no relevant family history pertinent to the presenting complaint Exam Narrative: GENERAL: Well-appearing, in no acute distress. EYES: EOMI. No redness or drainage. Conjunctivae normal. ENT: Mucous membranes pink and moist. No rhinorrhea. TMs normal bilaterally. Throat normal. Uvula midline. NECK: Normal AROM. Supple. CHEST: No respiratory distress. Wheezing to posterior brand, diminished to right base. speaks full sentences. HEART: Regular rate and rhythm. No murmur appreciated. ABDOMEN: Soft, nontender, nondistended, normal active bowel sounds. EXTREMITIES: Normal range of motion. No edema. SKIN: Warm, dry, no rash. Capillary refill normal. Normal skin turgor. NEURO: Alert and oriented x3. Gait steady. PSYCH: Normal affect. Course Course Emergency Course: Patient is aware of diagnosis, understands and agrees to treatment plan. Anticipatory guidance given. Patient agrees to follow-up as directed and is aware of reasons to seek care at the emergency department. Portions of this record may have been created with voice recognition software Level of Care: Express Care Visit Vital Signs Vital signs: Vital Signs Temperature 99.2 F 05/26/23 17:27 Pulse Rate 89 05/26/23 17:27 Respiratory Rate 20 05/26/23 17:27 Blood Pressure 138/70 05/26/23 17:27 Pulse Oximetry 99 05/26/23 17:27 Oxygen Delivery Room Air 05/26/23 17:27 Temperature 99.2 F 05/26/23 17:27 Pulse Rate 89 05/26/23 17:27 Respiratory Rate 20 05/26/23 17:27 Blood Pressure 138/70 05/26/23 17:27 Pulse Oximetry 99 05/26/23 17:27 Oxygen Delivery Room Air 05/26/23 17:27 MDM - URI/Sore Throat MDM Narrative Medical decision making narrative: Pt presented for cough and sob, wheezing noted throughout Reassessed after Albuterol neb treatment. Significant improvement in lung
[2023-05-26] MEDS: ALBUTEROL SULFATE NEB 2.5 MG/3 ML INH INHALATION (17:47)
== END 2023-05-26 18:30 | disposition home or self-care (01) ==
PROVIDERS: Emergency Provider Nurse Practitioner Family; PCP Internal Medicine
DX: J40 Bronchitis, not specified as acute or chronic (principal); F41.9 Anxiety disorder, unspecified; F32.A Depression, unspecified; Z20.822 Contact with and (suspected) exposure to COVID-19
CPT/HCPCS: 87426; 87804; 99213; C9803; G0463

== ENCOUNTER 2023-07-19 15:21 | Emergency (ER) | payer SELFPAY ==
[2023-07-19 15:28] VITALS: BP 139/86; PULSE 90; RESP 16; TEMP 37.9; O2SAT 99
--- NOTE | 2023-07-19 16:49 | ED.GENADULT ---
HPI - General Adult General Chief complaint: Upper Respiratory Infection Stated complaint: Cough/Sore Throat Source: patient Mode of arrival: ambulatory Limitations: no limitations History of Present Illness HPI narrative: Patient presents requesting a note to excuse him from work. Last Tuesday he developed a productive cough of yellow sputum, SOB, sinus congestion, and sore throat. He took a COVID test 2 days later which was positive. He indicates his symptoms are now improving. His child tested positive for COVID last week as well. He has been taking ibuprofen for his symptoms. His employer requested he bring in a note to excuse him from work. He does not smoke. Related Data Allergies Allergy/AdvReac Type Severity Reaction Status Date / Time No Known Allergies Allergy Verified 05/26/23 17:30 Review of Systems Review of Systems: CONSTITUTIONAL: Denies fever, chills, or sweats. EYES: Denies visual changes, redness, or discharge. ENT: Reports sinus congestion and sore throat. Denies otalgia. CARDIOVASCULAR: Denies chest pain, palpitations, or edema. RESPIRATORY: Reports productive cough of yellow sputum and shortness of breath, which are both improving GASTROINTESTINAL: Denies abdominal pain, nausea, vomiting, or diarrhea. GENITOURINARY: Denies dysuria or hematuria. SKIN: Denies rash or itching. MUSCULOSKELETAL: Denies back pain, joint pain, or myalgia. NEUROLOGIC: Denies headache, numbness, dizziness, or weakness. PSYCHIATRIC: Denies anxiety or depression. [facility] Past Medical History Medical History Closed left ankle fracture History of anxiety History of depression Surgical History Surgical History History of surgery on arm ulnar nerve release left arm Family History Family History Mother Family history non-contributory Social History Social History Smoking status: Never smoker Alcohol intake: current Alcohol use details: social Substance use type: does not use Living arrangements: with family Gender identity (if verbalized by the patient): Male Exam Narrative: GENERAL: Well-appearing, well-nourished, and in no acute distress. HEAD: Normocephalic, atraumatic. EYES: PERRLA and EOMI. ENT: Nares clear, no rhinorrhea or epistaxis. Mucous membranes moist. Oropharynx without tonsillar hypertrophy exudate or other lesions. Bilateral TMs pearly lance nonbulging NECK: Supple. No adenopathy or masses. No carotid bruits or JVD CHEST: Occasional cough present. Clear to auscultation. No respiratory distress. No wheezes rales or rhonchi HEART: Regular rate and rhythm. No murmur heard. Normal peripheral pulses. ABDOMEN: Soft, nontender, nondistended, normal active bowel sounds. EXTREMITIES: Normal range of motion. No edema. SKIN: Warm, dry, no rash. NEURO: No focal deficits. Alert and oriented x3. PSYCH: Normal mood and affect. Course Course Emergency Course: This is a 32-year-old male who recently tested positive for COVID and needs a note to excuse him from work. Recommend cepacol lozenges and mucinex DM for his symptoms. Increase hydration. Follow up with PCP. Go to the emergency department for worsening symptoms. Patient in agreement with plan of care. Level of Care: Express Care Visit Vital Signs Vital signs: Vital Signs Temperature 37.9 C H 07/19/23 15:28 Pulse Rate 90 07/19/23 15:28 Respiratory Rate 16 07/19/23 15:28 Blood Pressure 139/86 07/19/23 15:28 Pulse Oximetry 99 07/19/23 15:28 Oxygen Delivery Room Air 07/19/23 15:28 Temperature 37.9 C H 07/19/23 15:28 Pulse Rate 90 07/19/23 15:28 Respiratory Rate 16 07/19/23 15:28 Blood Pressure 139/86 07/19/23 15:28 Pulse Oximetry 99 07/19/23 15:28
== END 2023-07-19 16:50 | disposition home or self-care (01) ==
PROVIDERS: Emergency Provider Nurse Practitioner; PCP Internal Medicine
DX: U07.1 COVID-19 (principal)
CPT/HCPCS: 99211; G0463

== ENCOUNTER 2023-11-16 09:42 | Emergency (ER) | payer OTHER, SELFPAY ==
[2023-11-16 09:52] VITALS: BP 117/76; PULSE 73; RESP 18; TEMP 37.1; O2SAT 100
--- NOTE | 2023-11-16 10:06 | ED.LOWEXIN ---
HPI - Extremity Injury (Lower) General Chief Complaint: Extremity Injury, Lower Stated Complaint: Right Ankle Injury Source: patient Mode of arrival: ambulatory Limitations: no limitations History of Present Illness HPI Narrative: 33-year-old male presented for complaint of right ankle / foot pain after injury this morning work. He states it 0600 he stepped off a curb causing him to roll the ankle. endorses swelling to the lateral aspect of the ankle. Denies Hearing a pop or crack. Has been able to bear weight. Did not take anything for pain stating I do not take anything unless it is absolutely necessary. Denies numbness, tingling, weakness, bruising or deformity. Related Data Allergies Allergy/AdvReac Type Severity Reaction Status Date / Time No Known Allergies Allergy Verified 11/16/23 10:04 Review of Systems Review of Systems: CONSTITUTIONAL: Denies body aches, fever, chills CARDIOVASCULAR: Denies chest pain, palpitations, or edema. RESPIRATORY: Denies cough or dyspnea. GASTROINTESTINAL: Denies abdominal pain, nausea, vomiting, or diarrhea. SKIN: Denies rash, itching, or wounds. MUSCULOSKELETAL: Reports right ankle pain Denies back pain NEUROLOGIC: Denies headache, numbness, tingling, or weakness. All systems reviewed & are unremarkable except as noted in HPI and below PMFSH Past Medical History Medical History Closed left ankle fracture History of anxiety History of depression Surgical History Surgical History History of surgery on arm ulnar nerve release left arm Family History Family History Mother Family history non-contributory Social History Social History Smoking status: Never smoker Alcohol intake: current Alcohol use details: social Substance use type: does not use Living arrangements: with family Gender identity (if verbalized by the patient): Male Comments At time of signature, I have reviewed and agree with nursing past medical, surgical, social and family history unless otherwise noted. Please see nursing chart for further information. There is no relevant family history pertinent to the presenting complaint Exam Narrative: GENERAL: Well-appearing, well-nourished, and in no acute distress. CHEST: Speaks in full sentences. No respiratory distress. HEART: Regular rate and rhythm. Normal and equal peripheral pulses. EXTREMITIES: slightly decreased range of motion of right ankle with flexion/extension/rotation, endorses pain with movement. mild swelling to lateral malleolus and dorsal/lateral aspect of the foot. right foot has normal strength and sensation, no ecchymosis, No open wounds, or obvious deformity; alignment normal, pulse palpable and equal bilaterally, skin warm, dry, pink. Capillary refill less than 3 seconds. SKIN: Warm, dry, no rash. NEURO: Alert and oriented x3. PSYCH: Normal mood and affect Course Course Emergency Course: Patient is aware of diagnosis, understands and agrees to treatment plan. Anticipatory guidance given. Patient agrees to follow-up as directed and is aware of reasons to seek care at the emergency department. Portions of this record may have been created with voice recognition software Level of Care: Express Care Visit Vital Signs Vital signs: Vital Signs Temperature 98.8 F 11/16/23 09:52 Pulse Rate 73 11/16/23 09:52 Respiratory Rate 18 11/16/23 09:52 Blood Pressure 117/76 11/16/23 09:52 Pulse Oximetry 100 11/16/23 09:52 Oxygen Delivery Room Air 11/16/23 09:52 Temperature 98.8 F 11/16/23 09:52 Pulse Rate 73 11/16/23 09:52 Respiratory Rate 18 11/16/23 09:52 Blood Pressure 117/76 11/16/23 09:52 Pulse Oximetry 100 11/16/23 09:52 Oxygen Delivery Room
== END 2023-11-16 10:50 | disposition home or self-care (01) ==
PROVIDERS: Emergency Provider Nurse Practitioner Family; PCP Internal Medicine
DX: S93.401A Sprain of unspecified ligament of right ankle, initial encounter (principal); S96.911A Strain of unspecified muscle and tendon at ankle and foot level, right foot, initial encounter; X50.9XXA Other and unspecified overexertion or strenuous movements or postures, initial encounter
CPT/HCPCS: 73610; 99213; G0463

== ENCOUNTER 2023-12-28 14:52 | Emergency (ER) | payer OTHER, SELFPAY ==
--- NOTE | ~2023-12-28 | XR_ITS ---
XR toe 1st RT min 2V 12/28/2023 15:23 INDICATION: Right first toe pain PROCEDURE: 5 views right first toe COMPARISON: No prior studies for comparison. FINDINGS: Fracture, dislocation or subluxation is not identified. The soft tissues appear within norm al limits. No foreign bodies are identified. IMPRESSION: 1: NO ACUTE BONE OR JOINT ABNORMALITY IDENTIFIED. Reviewed, dictated and finalized at location B.
[2023-12-28 14:59] VITALS: BP 122/73; PULSE 66; RESP 16; TEMP 36.8; O2SAT 99
--- NOTE | 2023-12-28 15:07 | ED.LOWEXIN ---
HPI - Extremity Injury (Lower) General Chief Complaint: Extremity Injury, Lower Stated Complaint: Right Foot Injury Time Seen by Provider: 12/28/23 15:07 Source: patient Mode of arrival: ambulatory Limitations: no limitations History of Present Illness HPI Narrative: 33 yo M presents with c/o pain to R great toe. 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 swelling and bruising noted. Walking with limp. All systems reviewed and negative except as noted above. Related Data Home Medications Medication Instructions Recorded Confirmed No Home Medications 12/28/23 12/28/23 Allergies Allergy/AdvReac Type Severity Reaction Status Date / Time No Known Allergies Allergy Verified 12/28/23 15:19 Review of Systems Review of Systems: CONSTITUTIONAL: Denies fever, chills, or sweats. EYES: Denies visual changes, redness, or discharge. ENT: Denies rhinorrhea, congestion, sore throat, or otalgia. CARDIOVASCULAR: Denies chest pain, palpitations, or edema. RESPIRATORY: Denies cough or dyspnea. GASTROINTESTINAL: Denies abdominal pain, nausea, vomiting, or diarrhea. GENITOURINARY: Denies dysuria or hematuria. SKIN: Denies rash or itching. MUSCULOSKELETAL: Denies back pain, joint pain, or myalgia. Reports pain, bruising and swelling to right great toe. NEUROLOGIC: Denies headache, numbness, or weakness. PSYCHIATRIC: Denies anxiety or depression. All other systems reviewed are negative, except as documented in HPI. [facility] Past Medical History Medical History Closed left ankle fracture History of anxiety History of depression Surgical History Surgical History History of surgery on arm ulnar nerve release left arm Family History Family History Mother Family history non-contributory Social History Social History Smoking status: Never smoker Alcohol intake: current Alcohol use details: social Substance use type: does not use Living arrangements: with family Gender identity (if verbalized by the patient): Male Comments At time of signature, agree with nursing past medical, surgical, social and family history. There is no relevant family history pertinent to the presenting complaint. Exam Narrative: GENERAL: This is a well-nourished, well-developed patient, in no apparent distress. HEAD: normocephalic, atraumatic. EYES: PERRL. Sclera clear/white. Vision is grossly intact. EARS: External ears normal NOSE: External nose normal NECK: Neck supple, non-tender without lymphadenopathy, masses or thyromegaly. CARDIOVASCULAR: Regular rate and rhythm without murmurs, gallops, or rubs. RESPIRATORY: Clear to auscultation. Breath sounds equal bilaterally. No wheezes, rales, or rhonchi. SKIN: warm, Dry, intact with no suspicious lesions or rash, good texture and turgor. NEURO: awake, alert, and oriented to person, place and time. There were no obvious focal neurologic abnormalities. EXTREMITIES: swelling, bruising to R great toe. no damage to toenail. ROM and distal NV intact. Course Course Level of Care: Express Care Visit Vital Signs Vital signs: Vital Signs Temperature 36.8 C 12/28/23 14:59 Pulse Rate 66 12/28/23 14:59 Respiratory Rate 16 12/28/23 14:59 Blood Pressure 122/73 12/28/23 14:59 Pulse Oximetry 99 12/28/23 14:59 Oxygen Delivery Room Air 12/28/23 14:59 Temperature 36.8 C 12/28/23 14:59 Pulse Rate 66 12/28/23 14:59 Respiratory Rate 16 12/28/23 14:59 Blood Pressure 122/73 12/28/23 14:59 Pulse Oximetry 99 12/28/23 14:59 Oxygen Delivery Room Air 12/28/23 14:59 Reviewed MDM - Extremity Injury (Lower) MDM Narrative Medical decision making narrative: Discussed x-ray results with patient. Negative for frac
== END 2023-12-28 15:45 | disposition home or self-care (01) ==
PROVIDERS: Emergency Provider Nurse Practitioner Family; PCP Internal Medicine
DX: S90.111A Contusion of right great toe without damage to nail, initial encounter (principal); W20.8XXA Other cause of strike by thrown, projected or falling object, initial encounter
CPT/HCPCS: 73660; 99213; G0463

== ENCOUNTER 2024-02-23 18:11 | Emergency (ER) | payer OTHER, SELFPAY ==
--- NOTE | ~2024-02-23 | XR_ITS ---
XR elbow RT min 3V Ordering provider: JORGE Barton History: . pain rt elbow, lifting injury . Comparison: None. FINDINGS: BONES: No acute fracture or dislocation. JOINT SPACES: Normal. SOFT TISSUES: Unremarkable. No definite joint effusion. IMPRESSION: No acute osseous abnormality of the right elbow. Reviewed, dictated and finalized at location A.
[2024-02-23 18:28] VITALS: BP 116/73; PULSE 79; RESP 16; TEMP 37.2; O2SAT 99
--- NOTE | 2024-02-23 20:25 | ED.UPPEXIN ---
HPI - Extremity Injury (Upper) General Chief Complaint: Extremity Injury, Upper Stated Complaint: Right Elbow Injury Time Seen by Provider: 02/23/24 18:53 Source: patient and RN notes reviewed Mode of arrival: ambulatory Limitations: no limitations History of Present Illness HPI narrative: Patient presents today complaining of a right elbow injury. Around 1330 this afternoon patient was loading a hand cart at work with some heavy objects when he felt a popping sensation in his right elbow and somewhat immediate numbness and tingling to the right 4th and 5th fingers. He currently rates his pain 5/10 and has tried no [id number] interventions prior to arrival. Patient states he has history of left ulnar nerve decompression and transposition surgery and states he believes this is a similar injury but not as severe. Related Data Home Medications Medication Instructions Recorded Confirmed No Home Medications 12/28/23 12/28/23 Allergies Allergy/AdvReac Type Severity Reaction Status Date / Time No Known Allergies Allergy Verified 12/28/23 15:19 Review of Systems Review of Systems: CONSTITUTIONAL: Denies body aches, fever, chills, or sweats. EYES: Denies visual changes, redness, or discharge. ENT: Denies rhinorrhea, congestion, sore throat, or otalgia. CARDIOVASCULAR: Denies chest pain, palpitations, or edema. RESPIRATORY: Denies cough or dyspnea. GASTROINTESTINAL: Denies abdominal pain, nausea, vomiting, or diarrhea. GENITOURINARY: Denies dysuria or hematuria. SKIN: Denies rash, itching, or wounds. MUSCULOSKELETAL: + right elbow injury NEUROLOGIC: Denies headache, or weakness.+ right finger numbness and tingling PSYCH: Denies depression or anxiety. [facility] Past Medical History Medical History Closed left ankle fracture History of anxiety History of depression Surgical History Surgical History History of surgery on arm ulnar nerve release left arm Family History Family History Mother Family history non-contributory Social History Social History Smoking status: Never smoker Alcohol intake: current Alcohol use details: social Substance use type: does not use Living arrangements: with family Gender identity (if verbalized by the patient): Male Comments At time of signature, I have reviewed and agree with nursing past medical, surgical, social and family history unless otherwise noted. Please see nursing chart for further information. There is no relevant family history pertinent to the presenting complaint Exam Narrative: GENERAL: Well-appearing, well-nourished, and in no acute distress. HEAD: Normocephalic, atraumatic. EYES: EOMI. No redness or drainage. Conjunctivae normal. ENT: Mucous membranes pink and moist. NECK: Normal AROM. CHEST: No respiratory distress. EXTREMITIES: Right arm: Mild to moderate edema surrounding the elbow with bony tenderness of the lateral and medial epicondyles and olecranon process. No additional tenderness of the forearm, wrist, or hand. Patient has no sensation in the 5th finger and no sensation of the 4th distal phalanx. Decreased sensation of the remainder of the 4th finger. Pain to the elbow with range of motion of the wrist. No movement of the 5th finger, decreased movement of the 4th finger. Distal sensation intact in fingers 1 through 3. Capillary refill normal and all 5 fingers. Radial pulse normal. SKIN: Warm, dry, no rash. Capillary refill normal. Normal skin turgor. NEURO: Alert and oriented x3. Gait steady. Course Course Level of Care: Express Care Visit Vital Signs Vital signs: Vital Signs Temperature 99.0 F 02/23/24 18:28 Pulse Rate 79 02/23/24 18:28 Respiratory
== END 2024-02-23 19:30 | disposition home or self-care (01) ==
PROVIDERS: Emergency Provider Nurse Practitioner; PCP Internal Medicine
DX: S59.901A Unspecified injury of right elbow, initial encounter (principal); X50.0XXA Overexertion from strenuous movement or load, initial encounter; Y99.0 Civilian activity done for income or pay
CPT/HCPCS: 73080; 99213; A4565; G0463

== ENCOUNTER 2024-07-02 08:50 | Emergency (ER) | payer OTHER, SELFPAY ==
--- NOTE | ~2024-07-02 | XR_ITS ---
EXAMINATION: XR chest 2V 07/02/2024 09:49 INDICATION: Cough with dyspnea PROCEDURE: 2 view chest COMPARISON: No prior studies for comparison. FINDINGS: The lungs are clear. The cardiomediastinal silhouette is within normal limits. There are no pleural effusions. There is no pneumothorax suspected. IMPRESSION: 1: NO ACUTE CARDIOPULMONARY DISEASE. Reviewed, dictated and finalized at location A. [facility]PA[facility]
[2024-07-02 09:00] VITALS: BP 108/76; PULSE 85; RESP 16; TEMP 37.4; O2SAT 97
--- OUTSIDE RECORDS SUMMARY | 2024-07-02 09:13 | XMS_ITS | Clinical Summary ---
Author Organization [facility] Address [address] [place] [address] Phone Care Team Providers Care Ornamental Plasterer Helper Name Role Phone Jostin Avendano MD Primary Care Provider [phone] Allergies No known active allergies Medications escitalopram oxalate (LEXAPRO) 10 mg tablet Take 10 mg by mouth 2 times daily. Active HYDROcodone-akosua taminophen (NORCO) 5-325 mg tabletIndicatio ns:Fall from ladder, initial encounter,Pain of right hip Take 1 Tablet by mouth every 8 hours as needed for Pain. Max Daily Amount: 3 Tablets 6 Tablet 04/19/2023 2:52 PM DIGITAL ASSISTANT 04/19/2023 Active naproxen (NAPROSYN) 500 mg tablet Take 1 Tablet (500 mg) by mouth 2 times daily with meals. 20 Tablet 04/19/2023 2:52 PM DIGITAL ASSISTANT 04/19/2023 Active Social History Tobacco Use Types Packs/Day Years Used Date Smoking Tobacco: Every Day Tobacco Cessation:Ready to Q uit: Not Asked; Counseling Given: Not Answered Comments:Chewing tobacco Alcohol Use Standard Drinks/Week Comments Yes 0 (1 standard drink = 0.6 oz pur e alcohol) Occasional/social Feeling Safe Answer Date Recorded Are you in a relationship wi th someone who hurts you emotionally and/or physically? No 04/19/2023 Sex and Gender Information Value Date Recorded Sex Assigned at Not on file Legal Sex Male 11:21 AM DIGITAL ASSISTANT Gender Identity Not on file Sexual Orientation Not on file Last Filed Vital Signs Vital Sign Reading Time Taken Comments Blood Pressure 100/49 04/19/2023 2:28 PM DIGITAL ASSISTANT Pulse 53 04/19/2023 2:28 PM DIGITAL ASSISTANT Temperature 36.4 ??C (97.5 ??F) 04/19/2023 11:[address] Respiratory Rate 10 04/19/2023 2:28 PM DIGITAL ASSISTANT Oxygen Saturation 100% 04/19/2023 2:28 PM DIGITAL ASSISTANT Inhaled Oxygen Concentration - - Weight 98.4 kg (217 lb) 04/19/2023 11:51 AM DIGITAL ASSISTANT Height 177.8 cm (5' 10 ) 04/19/2023 11:51 AM DIGITAL ASSISTANT Body Mass Index 31.14 04/19/2023 11:51 AM DIGITAL ASSISTANT Plan of Treatment Health Maintenance Due Date Last Done Comments PNEUMOCOCCAL VACCINE 0-64 YE ARS (1 of 2 - PCV) 10/16/1997 DTAP/TDAP/TD VACCINES (1 - Tdap) 10/16/2010 HEPATITIS B VACCINES (1 of 3 - 19+ 3-dose series) 10/16/2010 INFLUENZA VACCINE (#1) 2024 HPV VACCINES Aged Out No longer eligi ble based on patient's age to complete this topic Insurance [employer] Care Teams Ornamental Plasterer Helper Relationship Specialty Start Date End Date Jostin Avendano MD [address] [place] [address] PCP - General Internal Medicine 04/19/23
--- OUTSIDE RECORDS SUMMARY | 2024-07-02 09:13 | XMS_ITS | Encounter Summary ---
Author Organization [facility] Address [address] [place] [address]. [place], [place] [id number] [place] [id number] Care Team Providers Care Assembler Truck Trailer Name Role Phone Jostin Avendano MD Primary Care Provider [phone] Natalie Humphreys NP Primary Care Provider [phone] Encounter Details Date Type Department Care Team (Late st Contact Info) Description 06/17/2020 Hospital Follow-up Call [facility] [address] [place] [address] Yumiko Serrato RN Social History Tobacco Use Types Packs/Day Years Used Date Smoking Tobacco: Never Smokeless Tobacco: Never Sex and Gender Information Value Date Recorded Sex Assigned at Not on file Legal Sex Male 8:58 PM CDT Gender Identity Not on file Sexual Orientation Not on file COVID-19 Exposure Response Date Recorded In the last month, have you been in contact with someone who was confirmed or suspected to have Coronavirus / COVID-19? No / Unsure 06/14/2020 10:07 PM SIGNING TEACHER documented as of this encounter Functional Status * RETIRED Are you deaf or do you have serious difficulty hearing Answer Date of Assessment Author Status No 06/15/2020 3:46 AM SIGNING TEACHER Activ e * RETIRED Are you blind or do you have serious difficulty seeing, even when wearing glasses? Answer Date of Assessment Author Status No 06/15/2020 3:46 AM SIGNING TEACHER Activ e * Do you have serious difficulty walking or climbing stairs? Answer Date of Assessment Author Status No 06/15/2020 3:46 AM SIGNING TEACHER Marybeth Wang RN Active * Do you have difficulty dressing or bathing? Answer Date of Assessment Author Status No 06/15/2020 3:46 AM Marybeth Orr RN Active * Because of a physical, mental, or emotional condition, do you have difficulty doing errands alone such as visiting a doctor's office or shopping? Answer Date of Assessment Author Status No 06/15/2020 3:46 AM Marybeth Orr RN Active documented as of this encounter Mental Status * Because of a physical, mental, or emotional condition, do you have serious difficulty concentrating, remembering, or making decisions? Answer Entry Date Author Status No 06/15/2020 3:46 AM Marybeth Orr RN Active documented in this encounter Plan of Treatment Not on file documented as of this encounter Visit Diagnoses Not on filedocumented in this encounter Care Teams Assembler Truck Trailer Relationship Specialty Start Date End Date Jostin Avendano MD [address] [place] [address] PCP - General INTERNAL MEDICINE 06/15/20 01/04/23 Natalie Humphreys NP [facility] [address] [place] [address] PCP - General NURSE PRACTITIONER 01/05/23 documented as of this encounter
--- OUTSIDE RECORDS SUMMARY | 2024-07-02 09:13 | XMS_ITS | Clinical Summary ---
Author Organization [facility] Address [address] [place] [address] Phone Care Team Providers Care Medical Technologist Microbiology Name Role Phone Jostin Avendano MD Primary Care Provider [phone] Allergies Active Allergy Reactions Criticality Noted Date Comments Iodinated Contrast Media Vomiting 06/03/2024 Medications naproxen (NAPROSYN) 500 MG Tablet Take 1 Tablet by mouth 2 times daily as needed for Mild or more severe pain. 20 Tablet 4 Active benzonatate (TESSALON) 100 MG Capsule Take 1-2 Capsules by mouth 3 times daily as needed for Cough for up to 10 days. 30 Capsule 5 06/17/19 25 predniSONE (DELTASONE) 20 MG Tablet Take 2 Tablets by mouth daily for 3 days, THEN 1.5 Tablets daily for 3 days, THEN 1 Tablet daily for 3 days, THEN 0.5 Tablets daily for 3 days. 15 Tablet 5 06/19/19 25 Encounters Date Type Department Care Team Description 06/07/2024 9:36 AM ELECTROPHYSIOLOGY NURSE PRACTITIONER - 06/07/2024 12:36 PM [facility] Emergency [facility] Emergency [address] [place] [address] Nito Hoff MD RSV bronchiolitis Discharge Disposition: Discharged to home or Selfcare 06/07/2024 Travel 06/03/2024 7:13 AM ELECTROPHYSIOLOGY NURSE PRACTITIONER - 06/03/2024 9:39 AM [facility] Emergency [facility] Emergency [address] [place] [address] Ramin Jasso MD RSV (acute bronchiolitis due to respiratory syncytial virus) Discharge Disposition: Discharged to home or Selfcare 06/03/2024 Travel 04/01/2024 2:35 PM CDT - 04/01/2024 3:48 PM CDT Emergency [facility] Emergency 1 [facility] [place] [address] Manuel Louise MD Vasovagal syncope Discharge Disposition: Discharged to home or Selfcare 04/01/2024 Travel from Last 3 Months Social History Tobacco Use Types Packs/Day Years Used Date Smoking Tobacco: Never Tobacco Cessation:Counseling Given: Not Answered Alcohol Use Standard Drinks/Week Comments Not Currently 0 (1 standard drink = 0.6 oz pur e alcohol) Sex and Gender Information Value Date Recorded Sex Assigned at Not on file Legal Sex Male 10:59 AM ELECTROPHYSIOLOGY NURSE PRACTITIONER Gender Identity Not on file Sexual Orientation Not on file Last Filed Vital Signs Vital Sign Reading Time Taken Comments Blood Pressure 116/72 06/07/2024 12:30 PM ELECTROPHYSIOLOGY NURSE PRACTITIONER Pulse 76 06/07/2024 12:30 PM ELECTROPHYSIOLOGY NURSE PRACTITIONER Temperature 37.2 ??C (99 ??F) 06/07/2024 12: 30 PM ELECTROPHYSIOLOGY NURSE PRACTITIONER Respiratory Rate 17 06/07/2024 12:3 0 PM ELECTROPHYSIOLOGY NURSE PRACTITIONER Oxygen Saturation 93% 06/07/2024 12: 30 PM ELECTROPHYSIOLOGY NURSE PRACTITIONER Inhaled Oxygen Concentration - - Weight 108.5 kg (239 lb 3.2 oz) 06/07/2024 9:43 AM ELECTROPHYSIOLOGY NURSE PRACTITIONER Height 177.8 cm (5' 10 ) 06/07/2024 9:43 AM ELECTROPHYSIOLOGY NURSE PRACTITIONER Body Mass Index 34.32 06/07/2024 9:43 AM ELECTROPHYSIOLOGY NURSE PRACTITIONER Plan of Treatment Health Maintenance Due Date Last Done Comments Hepatitis C Virus (HCV) Screening 1991 TdaP Immunization 1991 Influenza Immunization (#1) 2024 SARS-COV-2 Immunization ( season) 2024 Respiratory Syncytial Virus (RSV) Immunization (Adult) (1 - 1-dose 75+ series) 10/16/2066 DTaP/Tdap/Td Immunization Discontinued 1996, 02/06/1993, 05/09/1992, Additional history exists Hepatitis B Immunization Completed 997, 09/07/1996, 08/10/1996 Meningococcal Immunization (ACWY) Aged Out 10/21/2011 No longer eligible based on patient's age to complete this topic Pneumococcal Immunization Combined Aged Out No longer eligible based on patient's age to complete this topic Rotavirus Immunization Aged Out No lo nger eligible based on patient's age to complete this topic Procedures Procedure Name Priority Date/Time Associated Diagnosis Comments XR CHEST 2 VIEWS STAT 06/07/2024 11:1 5 AM ELECTROPHYSIOLOGY NURSE PRACTITIONER CBC WITH AUTO DIFFERENTIAL STAT 06/07/2024 10:20 AM ELECTROPHYSIOLOGY NURSE PRACTITIONER COMPLETE BLOOD COUNT (CBC) WITH DIFF STAT 06/07/2024 10:20 AM ELECTROPHYSIOLOGY NURSE PRACTITIONER BASIC METABOLIC PANEL W/ CALCIUM TOTAL STAT 06/07/2024 10:20 AM ELECTROPHYSIOLOGY NURSE PRACTITIONER EKG 12 LEAD STAT 06/07/2024 9:40 AM ELECTROPHYSIOLOGY NURSE PRACTITIONER EKG SCAN 06/07/2024 12:00 AM ELECTROPHYSIOLOGY NURSE PRACTITIONER XR CHEST 2 VIEWS STAT 06/03/2024 7:53 AM ELECTROPHYSIOLOGY NURSE PRACTITIONER GOLD TOP TUBE STAT 06/03/2024 7:39 AM ELECTROPHYSIOLOGY NURSE PRACTITIONER BLUE TOP TUBE STAT 06/03/2024 7:39 AM ELECTROPHYSIOLOGY NURSE PRACTITIONER CBC WITH AUTO DIFFERENTIAL STAT 06/03/2024 7:39 AM ELECTROPHYSIOLOGY NURSE PRACTITIONER D-DIMER STAT 06/03/2024 7:39 AM ELECTROPHYSIOLOGY NURSE PRACTITIONER EXTRA TUBES STAT 06/03/2024 7:39 AM ELECTROPHYSIOLOGY NURSE PRACTITIONER TROPONIN I, HIGH SENSITIVITY (HSTRP) STAT 06/03/2024 7:39 AM ELECTROPHYSIOLOGY NURSE PRACTITIONER CMP (COMPREHENSIVE METABOLIC PANEL) STAT 06/03/2024 7:39 AM ELECTROPHYSIOLOGY NURSE PRACTITIONER COMPLETE BLOOD COUNT (CBC) WITH DIFF STAT 06/03/2024 7:39 AM ELECTROPHYSIOLOGY NURSE PRACTITIONER RSV,SARS-COV-2,INFLUE NZA A&B BY PCR STAT 06/03/2024 7:24 AM ELECTROPHYSIOLOGY NURSE PRACTITIONER EKG 12 LEAD STAT 06/03/2024 7:21 AM ELECTROPHYSIOLOGY NURSE PRACTITIONER CBC WITH AUTO DIFFERENTIAL STAT 04/01/2024 2:50 PM CDT D-DIMER STAT 04/01/2024 2:50 PM CDT TROPONIN I, HIGH SENSITIVITY (HSTRP) STAT 04/01/2024 2:50 PM CDT CMP (COMPREHENSIVE METABOLIC PANEL) STAT 04/01/2024 2:50 PM CDT COMPLETE BLOOD COUNT (CBC) WITH DIFF STAT 04/01/2024 2:50 PM CDT EKG 12 LEAD STAT 04/01/2024 2:41 PM CDT EKG SCAN 04/01/2024 12:00 AM CDT from Last 3 Months Results * XR CHEST 2 VIEWS (06/07/2024 11:15 AM ELECTROPHYSIOLOGY NURSE PRACTITIONER) Only the most recent of2 resultswithin the time period is included. Anatomical Region Laterality Modality Chest N/A Digital Radiogra phy 06/07/2024 12:3 6 PM ELECTROPHYSIOLOGY NURSE PRACTITIONER Impressions 06/07/2024 12:39 PM ELECTROPHYSIOLOGY NURSE PRACTITIONER IMPRESSION: ?? No acute cardiopulmonary abnormality. Narrative 06/07/2024 12:39 PM ELECTROPHYSIOLOGY NURSE PRACTITIONER EXAM DESCRIPTION: ?? XR CHEST 2 VIEWS REASON FOR STUDY: ?? Non productive cough, chest discomfort when coughing, shortness of breath x 8 dats worse x 4 days- recently diagnosed with RSV ?? TECHNIQUE: ?? Frontal ??and lateral radiographic views of the chest acquired. COMPARISON: ?? 06/03/2024 FINDINGS: LUNGS/PLEURA: ?? No focal consolidation or pneumothorax. No pleural effusion. HEART/MEDIASTINUM: ?? Heart size is normal. Normal mediastinal and hilar contours. HARDWARE/LINES/TUBES: ?? None. BONES: ?? No acute findings. OTHER: ?? No other significant finding. THIS IS AN ELECTRONICALLY VERIFIED FINAL REPORT 06/07/2024 12:36 PM - Electronically signed by ??Artis DUFFY: TATI D: ??06/07/2024 12:36 PM T: ??06/07/2024 12:36 PM Report ID: [id number] Reading Location: ??[id number] Procedure Note Artis Mata MD - 06/07/2024 EXAM DESCRIPTION: XR CHEST 2 VIEWS REASON FOR STUDY: Non productive cough, chest discomfort when coughing, shortness of breath x 8 dats worse x 4 days- recently diagnosed with RSV TECHNIQUE: Frontal and lateral radiographic views of the chest acquired. COMPARISON: 06/03/2024 FINDINGS: LUNGS/PLEURA: No focal consolidation or pneumothorax. No pleural effusion. HEART/MEDIASTINUM: Heart size is normal. Normal mediastinal and hilar contours. HARDWARE/LINES/TUBES: None. BONES: No acute findings. OTHER: No other significant finding. THIS IS AN ELECTRONICALLY VERIFIED FINAL REPORT 06/07/2024 12:36 PM - Electronically signed by Artis DUFFY: TATI Report ID: [id number] Reading Location: [place] [address] IMPRESSION: No acute cardiopulmonary abnormality. Nito Hoff MD G DIAGNOSTIC ORDERAB LES Final Result * (ABNORMAL) CBC with Auto Differential (06/07/2024 10:20 AM ELECTROPHYSIOLOGY NURSE PRACTITIONER) Only the most recent of3 resultswithin the time period is included. WBC 12.91(H) 4.00 - 12.00 10(3)/mcL 06/07/2024 10:49 AM ELECTROPHYSIOLOGY NURSE PRACTITIONER [facility] RBC 4.92 4.40 - 5.80 10(6)/mcL 06/07/2024 10:49 AM ELECTROPHYSIOLOGY NURSE PRACTITIONER [facility] HEMOGLOBIN (HGB) 14.6 13.0 - 16.5 g/dL 06/07/2024 10:49 AM [facility] HEMATOCRIT (HCT) 42.5 38.0 - 50.0 % 06/07/2024 10:49 AM [facility] MCV 86.4 82.0 - 96.0 fL 06/07/2024 10:49 AM [facility] MCH 29.7 26.0 - 32.0 pg 06/07/2024 10:49 AM [facility] MCHC 34.4 31.0 - 36.0 g/dL 06/07/2024 10:49 AM [facility] PLATELET COUNT 277 140 - 440 10(3)/[facility] 06/07/2024 10:49 AM [facility] RDW 12.5 11.8 - 15.5 % 06/07/2024 10:49 AM [facility] MPV 9.7 8.0 - 12.6 fL 06/07/2024 10:49 AM [facility] NEUTROPHILS 65.7 40.0 - 68.0 % 06/07/2024 10:49 AM [facility] LYMPHOCYTES 19.9 19.0 - 49.0 % 06/07/2024 10:49 AM [facility] MONOCYTES 9.3 3.0 - 13.0 % 06/07/2024 10:49 AM [facility] EOSINOPHILS 4.3 0.0 - 8.0 % 06/07/2024 10:49 AM [facility] BASOPHILS 0.8 0.0 - 1.0 % 06/07/2024 10:49 AM [facility] ABSOLUTE NEUTROPHILS 8.49(H) 1.40 - 5.30 10(3)/mcL 06/07/2024 10:49 AM [facility] ABSOLUTE LYMPHOCYTES 2.57 0.90 - 3.30 10(3)/mcL 06/07/2024 10:49 AM [facility] ABSOLUTE MONOCYTES 1.20(H) 0.10 - 0.90 10(3)/mcL 06/07/2024 10:49 AM ELECTROPHYSIOLOGY NURSE PRACTITIONER [facility] ABSOLUTE EOSINOPHIL 0.55(H) 0.00 - 0.50 10(3)/[facility] 06/07/2024 10:49 AM ELECTROPHYSIOLOGY NURSE PRACTITIONER [facility] ABSOLUTE BASOPHILS 0.10 0.00 - 0.10 10(3)/[facility] 06/07/2024 10:49 AM ELECTROPHYSIOLOGY NURSE PRACTITIONER [facility] NRBC PER 100 WBC 0 06/07/19 10:49 AM ELECTROPHYSIOLOGY NURSE PRACTITIONER [facility] Blood Venipuncture / Unknown 06/07/2024 10:20 AM ELECTROPHYSIOLOGY NURSE PRACTITIONER 06/07/2024 10:40 AM ELECTROPHYSIOLOGY NURSE PRACTITIONER us Nito Hoff MD HEMATOLOGY ORDERABLES Final Result [facility] [address] [place] [address] * (ABNORMAL) BMP w/ Ca (06/07/2024 10:20 AM ELECTROPHYSIOLOGY NURSE PRACTITIONER) SODIUM 140 136 - 145 mmol/L 06/07/2024 11:08 AM [facility] POTASSIUM 3.7 3.5 - 5.1 mmol/L 06/07/2024 11:08 AM [facility] CHLORIDE 110(H) 98 - 107 mmol/L 06/07/2024 11:08 AM [facility] CO2, VENOUS 21(L) 22 - 30 mmol/L 06/07/2024 11:08 AM [facility] ANION GAP 12.7 <18.0 mmol/L 06/07/2024 11:08 AM [facility] GLUCOSE 92 70 - 99 mg/dL 06/07/2024 11:08 AM [facility] BUN 11 9 - 21 mg/dL 06/07/2024 11:08 AM [facility] CREATININE, BLOOD 0.88 0.70 - 1.30 mg/dL 06/07/2024 11:08 AM [facility] BUN/CREATININE RATIO 13 12 - 20 ratio 06/07/2024 11:08 AM ELECTROPHYSIOLOGY NURSE PRACTITIONER [facility] CALCIUM 8.5(L) 8.7 - 10.5 mg/dL 06/07/2024 11:08 AM ELECTROPHYSIOLOGY NURSE PRACTITIONER [facility] GFR, ESTIMATED >60 >=60 06/07/2024 11:08 AM ELECTROPHYSIOLOGY NURSE PRACTITIONER [facility] Comment: Creatinine Clearance is the preferred criteria for selecting drug dose adjustments in renally impaired patients. ??The GFR is provided as additional pertinent clinical information. GFR is reported in mL/min/1.73 sq m. Calculation based on the Chronic Kidney Disease Epidemiology Collaboration (CKD- EPI) equation refit without adjustment for race. GFR, EST. >60 >=60 025 11:08 AM ELECTROPHYSIOLOGY NURSE PRACTITIONER [facility] GFR, EST. NONAFRICAN >60 >=60 06/07/2024 11:08 AM ELECTROPHYSIOLOGY NURSE PRACTITIONER [facility] Blood Venipuncture / Unknown 06/07/2024 10:20 AM ELECTROPHYSIOLOGY NURSE PRACTITIONER 06/07/2024 10:40 AM ELECTROPHYSIOLOGY NURSE PRACTITIONER us Nito Hoff MD CHEMISTRY ORDERABLES F inal Result [facility] [address] [place] [address] * EKG 12 LEAD (06/07/2024 9:40 AM ELECTROPHYSIOLOGY NURSE PRACTITIONER) Only the most recent of3 resultswithin the time period is included. Ventricular Rate 90 BPM EXTERNAL EKG Atrial Rate 90 BPM EXTERNAL EKG P-R Interval 174 ms EXTERNAL EKG QRS Duration 84 ms EXTERNAL EKG Q-T Duration 344 ms EXTERNAL EKG QTC CALCULATION 420 ms EXTERNAL EKG P [place] 30 degrees EXTERNAL EKG R [place] 44 degrees EXTERNAL EKG T [place] 23 degrees EXTERNAL EKG 06/07/2024 9:40 AM ELECTROPHYSIOLOGY NURSE PRACTITIONER Impressions EXTERNAL EKG - 06/09/2024 1:16 PM ELECTROPHYSIOLOGY NURSE PRACTITIONER Normal sinus rhythm Normal ECG When compared with ECG of 03-JUN-2024 07:21, No significant change was found Confirmed by MANJULA MARIN ([id number]) on 06/09/2024 1:16:38 PM Narrative Procedure Note Manjula Marin MD - 06/09/2024 IMPRESSION: Normal sinus rhythm Normal ECG When compared with ECG of 03-JUN-2024 07:21, No significant change was found Confirmed by MANJULA MARIN ([id number]) on 06/09/2024 1:16:38 PM us Nito Hoff MD IMG ECG ORDERABLES Fin al Result Performing Organization Address [facility] Phone Number EXTERNAL EKG * EKG SCAN (06/07/2024 12:00 AM ELECTROPHYSIOLOGY NURSE PRACTITIONER) Only the most recent of2 resultswithin the time period is included. 06/07/2024 us Provider Scan IMG ECG ORDERABLES Final Result Performing Organization Address [facility] Phone Number RESULTING AGENCY * TROPONIN I, HIGH SENSITIVITY (HSTRP) (06/03/2024 7:39 AM ELECTROPHYSIOLOGY NURSE PRACTITIONER) Only the most recent of2 resultswithin the time period is included. TROPONIN I, HIGH SENSITIVITY- ANTHONY <3 <=35 ng/L 06/03/2024 8:14 AM ELECTROPHYSIOLOGY NURSE PRACTITIONER [facility] Comment: High-sensitivity troponin I results are reported in ng/L making the result appear to be 1,000 times higher than the contemporary troponin I value which is reported in ng/ml. Results from [facility]. Blood Venipuncture / Unknown 06/03/2024 7:39 AM ELECTROPHYSIOLOGY NURSE PRACTITIONER 06/03/2024 7:47 AM ELECTROPHYSIOLOGY NURSE PRACTITIONER us Ramin Jasso MD CHEMISTRY ORDERABLES Final Resul t Performing Organization Address [facility] Phone Number [facility] [address] [place] [address] * Gold Top Tube (06/03/2024 7:39 AM ELECTROPHYSIOLOGY NURSE PRACTITIONER) Blood No Phlebotomy Charged / Unknown 06/03/2024 7:39 AM ELECTROPHYSIOLOGY NURSE PRACTITIONER 06/03/2024 7:48 AM ELECTROPHYSIOLOGY NURSE PRACTITIONER us Ramin Jasso MD CHEMISTRY ORDERABLES Final Resul t Performing Organization Address [facility] Phone Number [facility] [address] [place] [address] * Blue Top Tube (06/03/2024 7:39 AM ELECTROPHYSIOLOGY NURSE PRACTITIONER) Blood No Phlebotomy Charged / Unknown 06/03/2024 7:39 AM ELECTROPHYSIOLOGY NURSE PRACTITIONER 06/03/2024 7:48 AM ELECTROPHYSIOLOGY NURSE PRACTITIONER us Ramin Jasso MD HEMATOLOGY ORDERABLES Final Resu lt Performing Organization Address [facility] Phone Number [facility] [address] [place] [address] * D-DIMER [id number] (06/03/2024 7:39 AM ELECTROPHYSIOLOGY NURSE PRACTITIONER) Only the most recent of2 resultswithin the time period is included. D DIMER <=0.27 <0.50 mcg/mL FEU 06/03/2024 8:24 AM ELECTROPHYSIOLOGY NURSE PRACTITIONER [facility] Blood No Phlebotomy Charged / Unknown 06/03/2024 7:39 AM ELECTROPHYSIOLOGY NURSE PRACTITIONER 06/03/2024 7:48 AM ELECTROPHYSIOLOGY NURSE PRACTITIONER Narrative [facility] - 06/03/2024 8:24 AM ELECTROPHYSIOLOGY NURSE PRACTITIONER The FDA has approved this method to exclude the diagnosis of DVT and/or PE at the cutoff value of <0.50 mcg/mL FEU. us Ramin Jasso MD HEMATOLOGY ORDERABLES Final Resu lt Performing Organization Address [facility] Phone Number [facility] [address] [place] [address] * (ABNORMAL) Comprehensive Metabolic Panel (Cmp) [id number] (06/03/2024 7:39 AM [facility]) Only the most recent of2 resultswithin the time period is included. SODIUM 138 136 - 145 mmol/L 06/03/2024 8:11 AM [facility] POTASSIUM 3.5 3.5 - 5.1 mmol/L 06/03/2024 8:11 AM [facility] CHLORIDE 108(H) 98 - 107 mmol/L 06/03/2024 8:11 AM [facility] CO2, VENOUS 21(L) 22 - 30 mmol/L 06/03/2024 8:11 AM [facility] ANION GAP 12.5 <18.0 mmol/L 06/03/2024 8:11 AM [facility] GLUCOSE 109(H) 70 - 99 mg/dL 06/03/2024 8:11 AM [facility] BUN 13 9 - 21 mg/dL 06/03/2024 8:11 AM [facility] CREATININE, BLOOD 0.92 0.70 - 1.30 mg/dL 06/03/2024 8:11 AM [facility] BUN/CREATININE RATIO 14 12 - 20 ratio 06/03/2024 8:11 AM [facility] TOTAL PROTEIN 6.5 6.3 - 8.2 g/dL 06/03/2024 8:11 AM [facility] ALBUMIN 3.9 3.5 - 5.0 g/dL 06/03/2024 8:11 AM [facility] A/G RATIO 1.5 1.0 - 2.2 06/03/2024 8:11 AM [facility] CALCIUM 8.9 8.7 - 10.5 mg/dL 06/03/2024 8:11 AM [facility] T BILI 0.4 0.2 - 1.2 mg/dL 06/03/2024 8:11 AM [facility] SGOT (AST) 22 5 - 34 U/L 06/03/2024 8:11 AM ELECTROPHYSIOLOGY NURSE PRACTITIONER [facility] SGPT (ALT) 28 0 - 55 U/L 06/03/2024 8:11 AM ELECTROPHYSIOLOGY NURSE PRACTITIONER [facility] ALKALINE PHOSPHATASE 63 40 - 150 U/L 06/03/2024 8:11 AM ELECTROPHYSIOLOGY NURSE PRACTITIONER [facility] GFR, ESTIMATED >60 >=60 06/03/2024 8:11 AM ELECTROPHYSIOLOGY NURSE PRACTITIONER [facility] Comment: Creatinine Clearance is the preferred criteria for selecting drug dose adjustments in renally impaired patients. ??The GFR is provided as additional pertinent clinical information. GFR is reported in mL/min/1.73 sq m. Calculation based on the Chronic Kidney Disease Epidemiology Collaboration (CKD- EPI) equation refit without adjustment for race. GFR, EST. >60 >=60 024 8:11 AM ELECTROPHYSIOLOGY NURSE PRACTITIONER [facility] GFR, EST. NONAFRICAN >60 >=60 06/03/2024 8:11 AM ELECTROPHYSIOLOGY NURSE PRACTITIONER [facility] Blood Venipuncture / Unknown 06/03/2024 7:39 AM ELECTROPHYSIOLOGY NURSE PRACTITIONER 06/03/2024 7:47 AM ELECTROPHYSIOLOGY NURSE PRACTITIONER us Ramin Jasso MD CHEMISTRY ORDERABLES Final Resul t [facility] [address] [place] [address] * (ABNORMAL) rsv,flu,covid (06/03/2024 7:24 AM ELECTROPHYSIOLOGY NURSE PRACTITIONER) FLU A Negative Negative, Error 06/03/2024 8:32 AM ELECTROPHYSIOLOGY NURSE PRACTITIONER [facility] FLU B Negative Negative 06/03/2024 8:32 AM ELECTROPHYSIOLOGY NURSE PRACTITIONER [facility] RESP SYNC VIRUS Positive(A) Negative 06/03/20 8:32 AM ELECTROPHYSIOLOGY NURSE PRACTITIONER [facility] SARSCOV2 NOT DETECTED (Reference Range for this test is Not Detected) 06/03/2024 8:32 AM ELECTROPHYSIOLOGY NURSE PRACTITIONER [facility] Comment:This test was perfor med by a Reverse Powder Coater PCR Method. Swab NASOPHARYNGEAL SWAB / Unknown Non-Phlebotomy Collection / Unknown 06/03/2024 7:24 AM ELECTROPHYSIOLOGY NURSE PRACTITIONER 06/03/2024 7:47 AM ELECTROPHYSIOLOGY NURSE PRACTITIONER Narrative [facility] - 06/03/2024 8:32 AM ELECTROPHYSIOLOGY NURSE PRACTITIONER This test has not been FDA cleared or approved; the test has been authorized by FDA under an Emergency Use Authorization (EUA) for use by laboratories certified under the CLIA that meet the requirements to perform moderate, high or waived complexity tests. Authorized Fact Sheets about this test for providers and patients are available at: https://www.fda.gov/medical-devices/jchehzltx-gsngvpjdiw-uphmqbl-devices/emergen -us e-authorizations us Ramin Jasso MD MICROBIOLOGY - GENERAL ORDERABLE S Final Result [facility] [address] [place] [address] from Last 3 Months Care Teams Medical Technologist Microbiology Relationship Specialty Start Date End Date Jostin Avendano MD [address] [place] [address] PCP - General Internal Medicine 06/11/22
--- OUTSIDE RECORDS SUMMARY | 2024-07-02 09:13 | XMS_ITS | Clinical Summary ---
Author Organization [facility] Address [address] [place] [address]. [place], [place] [address] [place] [id number] Care Team Providers Care City Marshal Name Role Phone LatashaNatalie aranda AARON Primary Care Provider [phone] Allergies No known active allergies Medications escitalopram (LEXAPRO) 10 MG tablet Take 1 tablet (10 mg total) by mouth daily. Active Active Problems Problem Noted Date Diagnosed Date Grade 3 ankle sprain 01/11/2023 Accidental electrocution 06/15/2020 Paresis ([facility]) 06/15/2020 Fall 06/15/2020 Family History Medical History Relation Comments No Known Problems Father No Known Problems Mother No Known Problems Sister Relation Status Comments Father Alive Mother Alive Sister Alive Social History Tobacco Use Types Packs/Day Years Used Date Smoking Tobacco: Never Smokeless Tobacco: Former Chew Tobacco Cessation:Counseling Given: Not Answered Alcohol Use Standard Drinks/Week Comments Not Currently 0 (1 standard drink = 0.6 oz pur e alcohol) Sex and Gender Information Value Date Recorded Sex Assigned at Not on file Legal Sex Male 8:58 PM CDT Gender Identity Not on file Sexual Orientation Not on file Last Filed Vital Signs Vital Sign Reading Time Taken Comments Blood Pressure 103/63 11/19/2021 3:16 PM CDT Pulse 63 11/19/2021 3:16 PM CDT Temperature 36.7 ??C (98.1 ??F) 11/19/2021 2:35 PM CD T Respiratory Rate 12 11/19/2021 3:16 PM CDT Oxygen Saturation 97% 11/19/2021 3:16 PM CDT Inhaled Oxygen Concentration - - Weight 88.9 kg (196 lb) 01/26/2023 2:34 PM CDT Height 177.8 cm (5' 10 ) 01/26/2023 2:34 PM CDT Body Mass Index 28.12 01/26/2023 2:34 PM CDT Plan of Treatment Health Maintenance Due Date Last Done Comments Annual Physical 10/16/1994 Hepatitis C 10/16/2009 DTaP, Tdap and Td Vaccines (2 - Tdap) 10/16/2010 08/10/1996, 02/06/1993, 05/09/1992, Additional history exists Hepatitis B Vaccines (1 of 3 - 19+ 3-dose series) 10/16/2010 HPV Vaccines (3 - Male 3-dose series) 04/22/2012 12/23/2011, 10/21/2011 COVID-19 Vaccine (2023- season) 2024 Influenza Adult (#1) 2024 Meningococcal Vaccine Aged Out 10/21/2011 No sarwat marjorie eligible based on patient's age to complete this topic Meningococcal B Vaccine Aged Out No l onger eligible based on patient's age to complete this topic Pneumococcal Vaccine: Pediatrics (0 to 5 Years) and At-Risk Patients (6 to 64 Years) Aged Out No longer eligible based on patient's age to complete this topic RSV Immunizations Under 20 Months Aged Out No longer eligible based on patient's age to complete this topic Insurance [employer] Advance Directives * Full Code (Latest Code Status on File) Date Activated Date Inactivated Comments 06/15/2020 1:25 AM 06/16/2020 6:25 PM Care Teams City Marshal Relationship Specialty Start Date End Date Natalie Humphreys NP [address] [id number] PCP - General NURSE PRACTITIONER 01/05/23
--- OUTSIDE RECORDS SUMMARY | 2024-07-02 09:13 | XMS_ITS | Encounter Summary ---
Author Organization [facility] Address [address] [place] [address]. [place] [address] [place] [address] Care Team Providers Care Wireless Consultant Name Role Phone None, Provider Primary Care Provider Jostin Colorado MD Primary Care Provider [phone] Natalie Humphreys NP Primary Care Provider [phone] Encounter Details Date Type Department Care Team (Late st Contact Info) Description 11/11/2018 Abstract SFL CONVERSION [address] [place] [address] , Generic Conversion, Social History Tobacco Use Types Packs/Day Years Used Date Smoking Tobacco: Never Assessed Sex and Gender Information Value Date Recorded Sex Assigned at Not on file Legal Sex Male 8:58 PM CDT Gender Identity Not on file Sexual Orientation Not on file documented as of this encounter Plan of Treatment Not on file documented as of this encounter Visit Diagnoses Not on filedocumented in this encounter Care Teams Wireless Consultant Relationship Specialty Start Date End Date None, Provider, PCP - General 06/14/20 06/14/20 Jostin Avendano MD [address] [place] [address] PCP - General INTERNAL MEDICINE 06/15/20 01/04/23 Natalie Humphreys NP [facility] [address] [place] [address] PCP - General NURSE PRACTITIONER 01/05/23 documented as of this encounter
--- OUTSIDE RECORDS SUMMARY | 2024-07-02 09:13 | XMS_ITS | Clinical Summary ---
Author Organization [facility] Address [address] [place] [address] Care Team Providers Care Cotton Wringer Name Role Phone Jostin Avendano MD Primary Care Provider [phone] Allergies Active Allergy Reactions Criticality Noted Date Comments Iodinated Contrast Media Vomiting Low 09/22/2023 Medications ondansetron (ZOFRAN) 4 mg tablet Take 1 tablet (4 mg total) by mouth every 4 (four) hours as needed for nausea or vomiting 15 tablet 09/22/2023 Active Active Problems Problem Noted Date Diagnosed Date Pain of upper extremity 05/27/2016 Encounters Date Type Department Care Team Description 04/01/2024 2:18 PM CDT - 04/01/2024 11:59 PM CDT Hospital Encounter [facility] Emergency, Room R Discharge Disposition: Discharge to home or self care from Last 3 Months Surgical History Surgery Date Site/Laterality Comments [place] NEURP MAJOR PRPH NRV ARM/ LEG OPN OTH/THN SPEC Neuroplasty Ulnar Nerve - (Added by KRISTEN Conv) Medical History Medical History Date Comments Personal history of other me ntal and behavioral disorders History of depression - (Add ed by TW Conv) Social History Tobacco Use Types Packs/Day Years Used Date Smoking Tobacco: Never Personal Safety Answer Date Recorded Have you ever been in or are you currently in a harmful physical or emotional relationship or is someone making you feel afraid or unsafe? 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 Gender Identity Not on file Sexual Orientation Not on file Obstetrics History Last Filed Vital Signs Vital Sign Reading Time Taken Comments Blood Pressure 129/79 09/22/2023 12:30 PM CDT Pulse 48 09/22/2023 12:30 PM CDT Temperature 36.6 ??C (97.9 ??F) 09/22/2023 11:58 AM C DT Respiratory Rate 12 09/22/2023 12:30 PM CDT Oxygen Saturation 99% 09/22/2023 12:30 PM CDT Inhaled Oxygen Concentration - - Weight 89.8 kg (198 lb) 09/22/2023 8:11 AM CDT Height 177.8 cm (5' 10 ) 09/22/2023 8:11 AM CDT Body Mass Index 28.41 09/22/2023 8:11 AM CDT Plan of Treatment Health Maintenance Due Date Last Done Comments Depression Screening 1990 Hepatitis C Screening 1990 DTaP/Tdap/Td Vaccine (6 - Tdap) 10/16/2002 08/10/1996, 02/06/1993, 05/09/1992, Additional history exists Varicella Vaccines (1 of 2 - 13+ 2-dose series) 10/16/2004 Regular Well Visit/Exam 18-64 10/16/2009 HPV Vaccines (3 - Male 3-dose series) 04/22/2012 12/23/2011, 10/21/2011 Influenza Vaccine (#1) 2024 Pneumococcal vaccine <65 Aged Out No longer eligible based on patient's age to complete this topic Insurance [employer] Care Teams Cotton Wringer Relationship Specialty Start Date End Date Jostin Avendano MD PCP - General Internal Medicine 09/21/23
--- OUTSIDE RECORDS SUMMARY | 2024-07-02 09:13 | XMS_ITS | Referral Summary ---
Author Organization [facility] Address [address] [place] [address] Care Team Providers Care Homemaking Rehabilitation Consultant Name Role Phone Jostin Avendano MD Primary Care Provider [phone] Encounters Date Type Department Care Team Description 04/01/2024 2:18 PM CDT - 04/01/2024 11:59 PM CDT Hospital Encounter [facility] Emergency, Room R Discharge Disposition: Discharge to home or self care from Last 3 Months Allergies Active Allergy Reactions Criticality Noted Date Comments Iodinated Contrast Media Vomiting Low 09/22/2023 Medications ondansetron (ZOFRAN) 4 mg tablet Take 1 tablet (4 mg total) by mouth every 4 (four) hours as needed for nausea or vomiting 15 tablet 09/22/2023 Active Active Problems Problem Noted Date Diagnosed Date Pain of upper extremity 05/27/2016 Social History Tobacco Use Types Packs/Day Years Used Date Smoking Tobacco: Never Personal Safety Answer Date Recorded Have you ever been in or are you currently in a harmful physical or emotional relationship or is someone making you feel afraid or unsafe? 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
--- NOTE | 2024-07-02 09:19 | ED_ITS ---
HPI - URI/Sore Throat General Chief Complaint: Upper Respiratory Infection Stated Complaint: Cough/Chest Pain Time Seen by Provider: 07/02/24 09:14 Source: patient, RN notes reviewed and old records reviewed Mode of arrival: ambulatory Limitations: no limitations History of Present Illness HPI Narrative: 33 year old male who presents to [facility] with complaints of cough and congestion, fevers, body aches, nasal congestion and drainage since Tuesday. Patient reports that he has coughed so much and so hard that his chest is sore. Patient reports that he has had cough for 2 weeks and was treated 2 weeks ago with cough tabs and steroid, reports that he feels,a little short of breath with activity.Patient reports that his fevers have been up to 102F and he has been taking Tylenol for fevers and body aches MD elicited complaint: fever, cough, rhinorrhea and nasal congestion Onset (ago): day(s) (day 3 with cough for 2 weeks) Severity: moderate Description of mucous: clear Able to tolerate fluids by mouth: Yes Treatments prior to arrival: acetaminophen Related Data Allergies Allergy/AdvReac Type Severity Reaction Status Date / Time No Known Allergies Allergy Verified 07/02/24 09:07 Review of Systems Review of Systems: CONSTITUTIONAL:Reports malaise, chills, sweats, or fever. EYES: Denies visual changes, redness, or discharge. ENT: Reports rhinorrhea, congestion,no sinus pain, no otalgia and no sore throat. CARDIOVASCULAR: Denies chest pain, palpitations, or edema. RESPIRATORY: Reports cough.? Reports some dyspnea. GASTROINTESTINAL: Denies abdominal pain, nausea, vomiting, diarrhea SKIN: Denies rash or itching. MUSCULOSKELETAL:reports myalgia. NEUROLOGIC: Denies headache. All systems reviewed & are unremarkable except as noted in HPI and below PMFSH Past Medical History Medical History Closed left ankle fracture History of anxiety History of depression Surgical History Surgical History History of surgery on arm ulnar nerve release left arm Family History Family History Mother Family history non-contributory Social History Social History Smoking status: Never smoker Alcohol intake: current Alcohol use details: social Substance use type: does not use Living arrangements: with family Gender identity (if verbalized by the patient): Male Comments At time of signature, agree with nursing past medical, surgical, social and family history. There is no relevant family history pertinent to the presenting complaint Exam Narrative: GENERAL:Ill-appearing, well-nourished, and in no acute distress. HEAD: Normocephalic EYES: PERRLA, conjunctivae clear ENT: Nares clear, turbinates edematous and erythematous, clear discharge. Mucous membranes moist. TM pearly lance with dull light reflex bilaterally; no tragal tenderness. Oropharynx erythematous without lesions. Tonsils not enlarged and without exudate, no drooling, no hoarseness, no trismus, uvula midline.post nasal drainage noted NECK: Supple. No lymphadenopathy CHEST: Coarse breath sounds bases on auscultation, breath sounds equal. No wheezing, rhonchi, rales, or stridor. No respiratory distress, speaks in full sentences.acute cough SAO2 97% on room air, reports feels some dyspnea with exertion. HEART: Regular rate and rhythm. No murmur heard. SKIN: Warm, dry, no rash. NEURO: Alert and oriented x3. PSYCH: Normal mood and affect Course Course Emergency Course: Patient is aware of diagnosis, understands and agrees to treatment plan.? Anticipatory guidance given.? Patient agrees to follow-up as directed and is aware of reasons to seek care at the emergency department. Portions of this record may have been created with voice recognition software Level of Care: Express Care Visit Vital Signs Vital signs: Vital Signs Temperature 37.4 C 07/02/24 09:00 Pulse Rate 85 07/02/24 09:00 Respiratory Rate 16 07/02/24 09:00 Blood Pressure 108/76 07/02/24 09:00 Pulse Oximetry 97 07/02/24 09:00 Oxygen Delivery Room Air 07/02/24 09:00 Temperature 37.4 C 07/02/24 09:00 Pulse Rate 85 07/02/24 09:00 Respiratory Rate 16 07/02/24 09:00 Blood Pressure 108/76 07/02/24 09:00 Pulse Oximetry 97 07/02/24 09:00 Oxygen Delivery Room Air 07/02/24 09:00 Reviewed MDM - URI/Sore Throat MDM Narrative Medical decision making narrative: Differential diagnosis considered: Tillman virus, strep pharyngitis, allergic rhinitis, upper respiratory tract infection, sinusitis, rhinosinusitis, nasopharyngitis. viral pharyngitis, otitis media, otitis externa, pneumonia, bronchitis, viral cough syndrome, viral syndrome, and influenza.? Exam findings show no acute concerns or changes; patient is non-toxic appearing and is in no distress.? Patient is appropriate for outpatient treatment and follow-up. Differential Diagnosis Differential diagnosis: Likely upper respiratory infection, viral infection, bronchitis, influenza and other (COVID, acute cough) Medical Records Attestation: I reviewed the patient's medical records. Lab Data Attestation: I reviewed the patient's lab results. Lab results narrative: Influenza A positive, Influenza B negative, COVID antigen negative Labs: Lab Results 07/02/24 Range/Units 09:04 POC Influenza A Ag Positive (Negative) POC Influenza B Ag Negative (Negative) POC SARS CoV-2 Ag Negative (Negative) reviewed Imaging Data Attestation: I personally reviewed and interpreted this imaging study as follows: My impression: no acute cardiopulmonary disease Radiologist's impression: [place] [address] XRay Report Signed Patient: Ray Schwab : 1990 MR#: [id number] Age: 33 Acct:[id number] Loc: [facility] ADM Date: 07/02/24Attending Dr: Ordering Physician: Tara Whaley APRN Date of Service: 07/02/24 Procedure(s): XR chest 2V Accession Number(s): [id number] cc: Tara Whaley APRN~ EXAMINATION: XR chest 2V 07/02/2024 09:49 INDICATION: Cough with dyspnea PROCEDURE: 2 view chest COMPARISON: No prior studies for comparison. FINDINGS: The lungs are clear. The cardiomediastinal silhouette is within normal limits. There are no pleural effusions. There is no pneumothorax suspected. IMPRESSION: 1: NO ACUTE CARDIOPULMONARY DISEASE. Reviewed, dictated and finalized at location [facility] Please be advised this is a medical document. It is intended for [id number] communication. It is written in medical language and may contain unfamiliar abb reviations or verbiage. Medical documents are intended to carry relevant information, facts as evident, and the clinical opinion of the practitioner at the time of the encounter. This report may have been done utilizing a voice recognition system. Attempts have been made to correct errors. However, there may be uncorrected grammatical, spelling, and recognition errors present. The file time of this note does not necessarily represent the time of service. Dictated By: Ousmane Morel MD 07/02/24 0951 Signed By: <Electronically signed by Ousmane Morel MD in OV> Critical Care Time Critical Care Time Critical Care Time: No Discharge Plan Discharge Clinical Impression: Influenza A, Acute cough Patient Disposition: Home, Self-Care Condition: Stable Instructions: Antibiotic Form, Influenza (ED), Acute Cough (ED) Additional Instructions: Increase fluids especially juices and water Jnqs-jwi-fjdbxef cough and cold medicine of your choice for your symptoms Recommend Mucinex daily make sure your are drinking plenty of fluids while taking this medication. Tylenol or Ibuprofen for any fevers or body aches Continue your inhaler/nebulizer as directed Steroids as directed--take with food heat to the face 20-30 minutes 4-6 times a day for pain Salt water gargles, throat lozenges or throat sprays as desired If your symptoms persist, change or worsen significantly before you can contact your personal physician then please, without delay, go to the emergency department for further evaluation. Follow-up with PCP in 7-10 days or sooner if needed You must quarantine. You are unable to return to work until you have been fever free 24 hours without use Tylenol or ibuprofen. On average influenza last approximately 5 days do recommend masking the 1st 5 days you are back around others. Patient Language: Niuean Prescriptions: New albuterol sulfate [Ventolin HFA] 90 mcg/actuation HFA aerosol inhaler 2 puff inhalation QID PRN (Reason: shortness of breath or wheezing) Qty: 6.7 0RF Rx Instructions: what ever is covered with insurance prednisone 20 mg tablet 40 mg PO DAILY 5 Days Qty: 10 0RF Follow-up/Referrals: PHYSICIAN NOT ON STAFF,NONSTAFF [Primary Care Provider] - Stand Alone Forms: Work/School Release IP Time of Disposition: 10:14 Quality [place] Coma Scale Eyes: Open Verbal: Oriented and Alert Motor: Follows Commands [place] Coma Total Score: 15
[2024-07-02 09:23] LABS: EDCOVIDSCREEN Negative (Negative); EDINFLUASCREEN Positive (Negative); EDINFLUBSCREEN Negative (Negative)
== END 2024-07-02 10:18 | disposition home or self-care (01) ==
PROVIDERS: Emergency Provider Registered Nurse
DX: J10.1 Influenza due to other identified influenza virus with other respiratory manifestations (principal); R05.1 Acute cough; Z20.822 Contact with and (suspected) exposure to COVID-19
CPT/HCPCS: 71046; 87426; 87804; 99213; G0463

== ENCOUNTER 2025-02-25 08:37 | Emergency (ER) | payer OTHER, SELFPAY ==
[2025-02-25 08:42] VITALS: BP 127/76; PULSE 84; RESP 20; TEMP 36.9; O2SAT 99
--- NOTE | 2025-02-25 09:08 | ED_ITS ---
HPI - Abdominal Pain General Chief Complaint: Abdominal Pain Stated Complaint: abdo pain/blood in stool Time Seen by Provider: 02/25/25 08:50 Source: patient and RN notes reviewed Mode of arrival: ambulatory Limitations: no limitations History of Present Illness HPI narrative: 34-year-old male presents Express Care complaining of lower abdominal pain and diarrhea for approximately 9 hours. Patient says symptoms started around midnight this morning. Patient reported having lower abdominal mid pain followed by diarrhea and noticed any concerning amount of bright red blood in his stools. Patient reports is having gross bright red blood in his stool as said he has had 12 episodes of diarrhea today. Patient denies any black or tarry stools. Patient denies any fevers, nausea, vomiting, upper respiratory sy mptoms, chest pain, breathing problems, dizziness, lightheadedness, or any other symptoms. Patient has not tried any [id number] to help with symptoms. Patient denies any significant past medical history. Patient denies any recent NSAID use, alcohol use, drug use, is a nonsmoker. Related Data Allergies Allergy/AdvReac Type Severity Reaction Status Date / Time No Known Allergies Allergy Verified 02/25/25 08:44 Review of Systems Review of Systems: CONSTITUTIONAL: Denies fever, chills, or sweats. EYES: Denies visual changes, redness, or discharge. ENT: Denies rhinorrhea, congestion, sore throat, or otalgia. CARDIOVASCULAR: Denies chest pain, palpitations, or edema. RESPIRATORY: Denies cough or dyspnea. GASTROINTESTINAL: Denies nausea, vomiting, vomiting blood,. Positive for abdominal pain, bloody stools, diarrhea. GENITOURINARY: Denies dysuria or hematuria. SKIN: Denies rash or itching. MUSCULOSKELETAL: Denies back pain, joint pain, or myalgia. NEUROLOGIC: Denies headache, numbness, or weakness. PSYCHIATRIC: Denies anxiety or depression. All other systems reviewed are negative, except as documented in HPI. [facility] Past Medical History Medical History Closed left ankle fracture History of anxiety History of depression Surgical History Surgical History History of surgery on arm ulnar nerve release left arm Family History Family History Mother Family history non-contributory Social History Social History Smoking status: Never smoker Alcohol intake: current Alcohol use details: social Substance use type: does not use Living arrangements: with family Gender identity (if verbalized by the patient): Male Comments At the time of my signature, I reviewed and agree with the nursing past medical, surgical, social, and family history. There is no relevant family history pertinent to the patient complaint. Exam Narrative: GENERAL: This is a well-nourished, well-developed adult, in no apparent distress. They are non ill-appearing, nontoxic appearing. HEAD: normocephalic, atraumatic. EYES: Sclera clear/white. Conjunctiva normal. Vision is grossly intact. Extraocular movements intact EARS: External ears normal, Hearing grossly intact. NOSE: External nose normal THROAT: Mucous membranes moist, NECK: Neck supple, CARDIOVASCULAR: Regular rate and rhythm without murmurs, gallops, or rubs. RESPIRATORY: Clear to auscultation. Breath sounds equal bilaterally. No wheezes, rales, or rhonchi. GASTROINTESTINAL: Abdomen soft, tender to palpation to lower abdomen. Guarding present the left lower quadrant. Nondistended. Bowel sounds are hyperactive the left lower quadrant. Bowel sounds active throughout the other quadrants. No hepato-splenomegaly, or palpable masses. No rigidity. SKIN: warm, Dry, intact with no suspicious lesions or rash, good texture and turgor. NEURO: awake, alert, and oriented to person, place and time. There were no obvious focal neurologic abnormalities. EXTREMITIES: No joint tenderness, effusion, or edema noted. Course Course Emergency Course: Portions of this record may have been created with voice recognition software Level of Care: Express Care Visit Vital Signs Vital signs: Vital Signs Temperature 98.5 F 02/25/25 08:42 Pulse Rate 84 02/25/25 08:42 Respiratory Rate 20 02/25/25 08:42 Blood Pressure 127/76 02/25/25 08:42 Pulse Oximetry 99 02/25/25 08:42 Oxygen Delivery Room Air 02/25/25 08:42 Temperature 98.5 F 02/25/25 08:42 Pulse Rate 84 02/25/25 08:42 Respiratory Rate 20 02/25/25 08:42 Blood Pressure 127/76 02/25/25 08:42 Pulse Oximetry 99 02/25/25 08:42 Oxygen Delivery Room Air 02/25/25 08:42 Reviewed Transfer Transfered to: [facility] ([place]) Transportation: Other (Private vehicle) Transfer rationale: Abdominal pain, GI bleed, patient require level care. Further evaluation and management, advanced imaging, and lab work. Accepting physician: Dr. Cavanaugh. MDM - Abdominal Pain MDM Narrative Medical decision making narrative: Patient having bloody stools and lower abdominal pain. There is guarding present left lower quadrant. Patient hemodynamically stable. No tachycardia. Patient normotensive. Patient no apparent distress. Cannot exclude the GI bleed or infectious colitis/diverticulitis. Given patient's symptoms, it is recommend the patient seek a higher level care and proceed immediately to the emergency department. Patient agreeable to go to [facility] ER. Called over to [place] [facility] spoke with Cindy Baltazar who is wear this patient and Dr. Cavanaugh accepted this patient for transfer. Patient advised to remain NPO proceed immediately to the ER. Patient said he will take it is of private vehicle to the ER. Patient hemodynamically stable to drive himself fever private vehicle to the ER Differential Diagnosis Differential diagnosis: Likely abdominal pain, diverticulitis, gastroenteritis and other (Colitis, lower GI bleed) Critical Care Time Critical Care Time Critical Care Time: No Discharge Plan Discharge Clinical Impression: Bloody stools Abdominal pain Qualifiers: Abdominal location: lower abdomen, unspecified Qualified Code(s): R10.30 - Lower abdominal pain, unspecified Patient Disposition: Acute Care Hospital Condition: Stable Patient Language: Faroese Prescriptions: No Action albuterol sulfate [Ventolin HFA] 90 mcg/actuation HFA aerosol inhaler 2 puff inhalation QID PRN (Reason: shortness of breath or wheezing) Qty: 6.7 0RF Rx Instructions: what ever is covered with insurance Follow-up/Referrals: Jostin Avendano MD [Primary Care Provider, Internal Medicine] Time of Disposition: 09:13
--- OUTSIDE RECORDS SUMMARY | 2025-02-25 09:12 | XMS_ITS | Clinical Summary ---
Author Organization [facility] Address [address] [place] [address] Phone Care Team Providers Care Practice Support Specialist Name Role Phone Jostin Avendano MD Primary Care Provider [phone] Allergies Active Allergy Reactions Criticality Noted Date Comments Iodinated Contrast Media Vomiting 06/03/2024 Medications naproxen (NAPROSYN) 500 MG Tablet Take 1 Tablet by mouth 2 times daily as needed for Mild or more severe pain. 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 Gender Identity Not on file Sexual Orientation Not on file Last Filed Vital Signs Vital Sign Reading Time Taken Comments Blood Pressure 116/72 06/07/2024 12:30 PM COMMERCIAL GREEN BUILDING ARCHITECT Pulse 76 06/07/2024 12:30 PM COMMERCIAL GREEN BUILDING ARCHITECT Temperature 37.2 C (99 F) 06/07/2024 12:30 PM COMMERCIAL GREEN BUILDING ARCHITECT Respiratory Rate 17 06/07/2024 12:3 0 PM COMMERCIAL GREEN BUILDING ARCHITECT Oxygen Saturation 93% 06/07/2024 12: 30 PM COMMERCIAL GREEN BUILDING ARCHITECT Inhaled Oxygen Concentration - - Weight 108.5 kg (239 lb 3.2 oz) 06/07/2024 9:43 AM COMMERCIAL GREEN BUILDING ARCHITECT Height 177.8 cm (5' 10) 06/07/2024 9:43 AM COMMERCIAL GREEN BUILDING ARCHITECT Body Mass Index 34.32 06/07/2024 9:43 AM COMMERCIAL GREEN BUILDING ARCHITECT Plan of Treatment Health Maintenance Due Date Last Done Comments Hepatitis C Virus (HCV) Screening 1991 TdaP Immunization 1991 Human Papillomavirus (HPV) Immunization (3 - Male 3-dose series) 04/22/2012 12/23/2011, 10/21/2011 Influenza Immunization (#1) 2025 SARS-COV-2 Immunization (1 - season) 2025 Respiratory Syncytial Virus (RSV) Immunization (Adult) (1 [...] on patient's age to complete this topic Care Teams Practice Support Specialist Relationship Specialty Start Date End Date Jostin Avendano MD [address] [place], [place] [id number] PCP - General Internal Medicine 06/11/22
--- OUTSIDE RECORDS SUMMARY | 2025-02-25 09:12 | XMS_ITS | Clinical Summary ---
Author Organization [facility] Address [address] [place] [address] Care Team Providers Care Neurology Physician Assistant Name Role Phone Jostin Avendano MD Primary Care Provider [phone] Allergies Active Allergy Reactions Criticality Noted Date Comments Iodinated Contrast Media Vomiting Low 09/22/2023 Medications ondansetron (ZOFRAN) 4 mg tablet Take 1 tablet (4 mg total) by mouth every 4 (four) hours as needed for nausea or vomiting 15 tablet 09/22/2023 Active Active Problems Problem Noted Date Diagnosed Date Pain of upper extremity 05/27/2016 Surgical History Surgery Date Site/Laterality Comments SD NEURP MAJOR PRPH NRV ARM/ LEG OPN OTH/THN SPEC Neuroplasty Ulnar Nerve - (Added by TW Conv) Medical History Medical History Date Comments [...] on file 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 Gender Identity Not on file Sexual Orientation Not on file Obstetrics History Last Filed Vital Signs Vital Sign Reading Time Taken Comments Blood Pressure 129/79 09/22/2023 12:30 PM CDT Pulse 48 09/22/2023 12:30 PM CDT Temperature 36.6 C (97.9 F) 09/22/2023 11:58 AM CDT Respiratory Rate 12 09/22/2023 12:30 PM CDT Oxygen Saturation 99% 09/22/2023 12:30 PM CDT Inhaled Oxygen Concentration - - Weight 89.8 kg (198 lb) 09/22/2023 8:11 AM CDT Height 177.8 cm (5' 10) 09/22/2023 8:11 AM CDT Body Mass Index [...] series) 04/22/2012 12/23/2011, 10/21/2011 Influenza Vaccine (#1) 2025 Hepatitis B Screening Completed 02/13/1997 , 09/07/1996, 08/10/1996 Pneumococcal vaccine <65 Aged Out No longer eligible based on patient's age to complete this topic Insurance [employer] Care Teams Neurology Physician Assistant Relationship Specialty Start Date End Date Jostin Avendano MD PCP - General Internal Medicine 09/21/23
--- OUTSIDE RECORDS SUMMARY | 2025-02-25 09:12 | XMS_ITS | Clinical Summary ---
Author Organization [facility] Address [address] [place] [address] Phone Care Team Providers Care Sales Person Name Role Phone Jostin Avendano MD Primary Care Provider [phone] Allergies No known active allergies Medications escitalopram oxalate (LEXAPRO) 10 mg tablet Take 10 mg by mouth 2 times daily. Active HYDROcodone-akosua taminophen (NORCO) 5-325 mg tabletIndicatio ns:Fall from ladder, initial encounter,Pain of right hip Take 1 Tablet by mouth every 8 hours as needed for Pain. Max Daily Amount: 3 Tablets 6 Tablet 04/19/2023 2:52 PM FRESH WORK INSPECTOR 04/19/2023 Active naproxen (NAPROSYN) 500 mg tablet Take 1 Tablet (500 mg) by mouth 2 times daily with meals. 20 Tablet 04/19/2023 2:52 PM FRESH WORK INSPECTOR 04/19/2023 Active Social History Tobacco Use Types [...] on file Legal Sex Male 11:21 AM FRESH WORK INSPECTOR Gender Identity Not on file Sexual Orientation Not on file Last Filed Vital Signs Vital Sign Reading Time Taken Comments Blood Pressure 100/49 04/19/2023 2:28 PM FRESH WORK INSPECTOR Pulse 53 04/19/2023 2:28 PM FRESH WORK INSPECTOR Temperature 36.4 C (97.5 F) 04/19/2023 11:51 AM FRESH WORK INSPECTOR Respiratory Rate 10 04/19/2023 2:28 PM FRESH WORK INSPECTOR Oxygen Saturation 100% 04/19/2023 2:28 PM FRESH WORK INSPECTOR Inhaled Oxygen Concentration - - Weight 98.4 kg (217 lb) 04/19/2023 11:51 AM FRESH WORK INSPECTOR Height 177.8 cm (5' 10) 04/19/2023 11:51 AM FRESH WORK INSPECTOR Body Mass Index 31.14 04/19/2023 11:51 AM FRESH WORK INSPECTOR Plan of Treatment Health Maintenance Due Date Last Done Comments DTAP/TDAP/TD VACCINES (1 - Tdap) 10/16/2010 HEPATITIS B VACCINES (1 of 3 - 19+ 3-dose series) 10/04 HPV VACCINES (1 - 3-dose SCDM series) 10/16/2018 INFLUENZA VACCINE (#1) [address] [place] [address] [employer] Care Teams Sales Person Relationship Specialty Start Date End Date Jostin Avendano MD [address] [place] [address] PCP - General Internal Medicine 04/19/23
--- OUTSIDE RECORDS SUMMARY | 2025-02-25 09:14 | XMS_ITS | Clinical Summary ---
Author Organization [facility] Address [facility]ly [facility] [place] [address] Care Team Providers Care Chemists Name Role Phone LatashaNatalie aranda AARON Primary Care Provider [phone] Allergies No known active allergies Medications escitalopram (LEXAPRO) 10 MG tablet Take 1 tablet (10 mg total) by mouth daily. Active Active Problems Problem Noted Date Diagnosed Date Grade 3 ankle sprain 01/11/2023 Accidental electrocution 06/15/2020 Paresis ([facility]) 06/15/2020 Fall 06/15/2020 Family History Medical History [...] 63 11/19/2021 3:16 PM CDT Temperature 36.7 C (98.1 F) 11/19/2021 2:35 PM CDT Respiratory Rate 12 11/19/2021 3:16 PM CDT Oxygen Saturation 97% 11/19/2021 3:16 PM CDT Inhaled Oxygen Concentration - - Weight 88.9 kg (196 lb) 01/26/2023 2:34 PM CDT Height 177.8 cm (5' 10) 01/26/2023 2:34 PM CDT Body Mass Index [...] 3-dose series) 04/22/2012 12/23/2011, 10/21/2011 COVID-19 Vaccine ( season) 2025 Meningococcal Vaccine Aged Out 10/21/2011 No sarwat marjorie eligible based on patient's age to complete this topic Meningococcal B Vaccine Aged Out No l onger eligible based on patient's age to complete this topic Pneumococcal Vaccine: Pediatrics (0 to 5 Years) and At-Risk Patients (6 to 49 Years) Aged Out No longer eligible based on patient's age to complete this topic RSV Immunizations Under 20 Months Aged Out No longer eligible based on patient's age to complete this topic Insurance [facility] Advance Directives * Full Code (Latest Code Status on File) Date Activated Date Inactivated Comments 06/15/2020 1:25 AM 06/16/2020 6:25 PM Care Teams Chemists Relationship Specialty Start Date End Date Natalie Humphreys NP [facility] [address] [place] [id number] PCP - General NURSE PRACTITIONER 01/05/23
--- OUTSIDE RECORDS SUMMARY | 2025-02-25 09:14 | XMS_ITS | Encounter Summary ---
Author Organization [facility] Address [facility] [place] [address] Care Team Providers Care Pediatric Nephrologist Name Role Phone None, Provider Primary Care Provider Jostin [place] MD Primary Care Provider [phone] Natalie Humphreys NP Primary Care Provider [phone] Encounter Details Date Type Department Care Team (Late st Contact Info) Description 11/11/2018 Abstract [facility] CONVERSION [address] [place] [address] , Generic Conversion, Social History Tobacco Use [...] on filedocumented in this encounter Care Teams Pediatric Nephrologist Relationship Specialty Start Date End Date None, Provider, PCP - General 06/14/20 06/14/20 Jostin Avendano MD [address] [place] [address] PCP - General INTERNAL MEDICINE 06/15/20 01/04/[address] [facility] [address] [place] [address] PCP - General NURSE PRACTITIONER 01/05/23 documented as of this encounter
--- OUTSIDE RECORDS SUMMARY | 2025-02-25 09:14 | XMS_ITS | Encounter Summary ---
Author Organization [facility] Address [facility] [place] [address] Care Team Providers Care Research Associate Molecular Biology Name Role Phone Jostin Avendano MD Primary Care Provider [phone] Natalie Humphreys NP Primary Care Provider [phone] Encounter Details Date Type Department Care Team (Late st Contact Info) Description 06/17/2020 Hospital Follow-up Call [facility] [address] [place] [address] Yumiko Serrato RN Social History Tobacco Use [...] COVID-19? No / Unsure 06/14/2020 10:07 PM COMMISSIONING SPECIALIST documented as of this encounter Functional Status * RETIRED Are you deaf or do you have serious difficulty hearing Answer Date of Assessment Author Status No 06/15/2020 3:46 AM COMMISSIONING SPECIALIST Activ e * RETIRED Are you blind or do you have serious difficulty seeing, even when wearing glasses? Answer Date of Assessment Author Status No 06/15/2020 3:46 AM COMMISSIONING SPECIALIST Activ e * Do you have serious difficulty walking or climbing stairs? Answer Date of Assessment Author Status No 06/15/2020 3:46 AM COMMISSIONING SPECIALIST Marybeth Wang RN Active * Do you [...] on filedocumented in this encounter Care Teams Research Associate Molecular Biology Relationship Specialty Start Date End Date Jostin Avendano MD [address] [place] [address] PCP - General INTERNAL MEDICINE 06/15/20 01/04/23 Natalie Humphreys NP [facility] [address] [place] [address] PCP - General NURSE PRACTITIONER 01/05/23 documented as of this encounter
== END 2025-02-25 09:14 | disposition short-term general hospital (02) ==
PROVIDERS: PCP Internal Medicine
DX: K92.1 Melena (principal); R10.32 Left lower quadrant pain
CPT/HCPCS: 99212; G0463